=== PATIENT | female | born 1950 | race Caucasian/White ===

== ENCOUNTER 2023-04-06 13:19 | Inpatient (IN) | payer MEDICARE, SELFPAY ==
--- NOTE | ~2023-04-06 | XR_ITS ---
EXAMINATION: XR CHEST CLINICAL INFORMATION: Chest pain COMPARISON: None available. TECHNIQUE: Frontal portable view of the chest was obtained. 9:53 PM FINDINGS: Lungs are clear. No pulmonary vascular congestion. There is no pleural effusion. The heart size is normal. The cardiac and mediastinal contours are normal. There are multilevel degenerative changes of dorsal spine. XR/XR chest 1V IMPRESSION: Unremarkable examination.
--- NOTE | ~2023-04-06 | CT_ITS ---
EXAMINATION: CT HEAD WITHOUT CONTRAST CLINICAL INFORMATION: Dizziness, headache. COMPARISON: None available. TECHNIQUE: Contiguous axial imaging was performed from the skull base to vertex without intravenous administration of contrast. This CT examination was performed using dose optimization techniques as appropriate, variously including the following: *Automated exposure control *Adjustment of mA and/or kV according to patient size (this includes techniques or standardized protocols for targeted exams where dose is matched to indication/reason for exam; i.e. extremities or head) *Use of iterative reconstruction technique DLP: 627 mGy-cm FINDINGS: No intercranial hemorrhage, tumors or acute infarcts noted. Mild diffuse commensurate prominence of ventricles and sulci. No focal parenchymal lesions of the brain or abnormal extra-axial fluid collections noted. Mild segmental calcific atherosclerosis of the cavernous portions of the internal carotid arteries. Normal appearance of the orbits and globes. No significant opacification of the visualized paranasal sinuses, mastoid air cells and middle ear cavities. Minimal hyperostosis frontalis interna. 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 CT/CT head/brain wo IV con IMPRESSION: No acute intracranial abnormalities.
[2023-04-06 13:42] VITALS: BP 173/86; PULSE 86; RESP 18; TEMP 36.6; O2SAT 98; BMI 24.3
--- NOTE | 2023-04-06 13:46 | ED.GENADULT ---
HPI - General Adult General Chief complaint: General Medical Stated complaint: Not Feeling Well Diabetic Time Seen by Provider: 04/06/23 18:20 Source: patient Mode of arrival: ambulatory Limitations: no limitations History of Present Illness HPI narrative: 73-year-old female with a history of diabetes mellitus, hypertension, hyperlipidemia, COPD, depression, anxiety who presents emergency department for evaluation of headache x2 weeks, shakes, diarrhea, dyspnea on exertion. The patient states that she moved back to this area from [place] in December of 2022. Since that time she has not been able to get a PCP and she states she is run out of her Dilantin, Lantus, metformin and citalopram. She states over the past 2 weeks she has been having an unusual headache which she states is located in her temporal areas bilaterally. She states the pain is a constant, sharp pain which is 10/10 at its worst. The pain is relieved by Tylenol. She has not had any visual changes associated with the headache. She also states she gets occasional shakes close her glucose is low and the last time she had these symptoms was 3 days prior when glucose was 66. She states that she is having difficulty sleeping because she does not have her trazodone and she is feeling very anxious. Review of systems was positive for shortness of breath but she states that this is not new and secondary to her COPD. She states she does have increased dyspnea on exertion but no chest pain. Patient states she has had diarrhea 6 loose episodes per day for the last 2-3 days with no blood or dark black stools. She denied fever, chills, rhinorrhea, sore throat, cough, chest pain. She states that while she was in [place] she had an abnormal EKG in September of 2022 showed a cardiac catheterization which she was told was normal, she did not have any lesions that needed to be stented at that time. Patient states she did fall 1 week prior and did strike her head, she had no loss of consciousness. Related Data Home Medications Medication Instructions Recorded Confirmed albuterol sulfate 2.5 mg/3 mL 2.5 mg inhalation TID PRN 04/06/23 04/06/23 (0.083 %) solution for nebulization Shortness Of Breath Or Wheezing albuterol sulfate 90 mcg/actuation 2 inh inhalation Q4H PRN Shortness 04/06/23 04/06/23 breath activated powder inhaler Of Breath Or Wheezing aspirin 81 mg chewable tablet 81 mg PO DAILY 04/06/23 04/06/23 atorvastatin 40 mg tablet 40 mg PO DAILY 04/06/23 04/06/23 cholecalciferol (vitamin D3) 25 25 mcg PO DAILY 04/06/23 04/06/23 mcg (1,000 unit) tablet citalopram 40 mg tablet 40 mg PO DAILY 04/06/23 04/06/23 clobetasol 0.05 % topical cream 1 appl topical BID PRN Rash 04/06/23 04/06/23 diltiazem HCl 360 mg capsule,24 360 mg PO DAILY 04/06/23 04/06/23 hr,extended release glipizide 10 mg tablet 10 mg PO BID 04/06/23 04/06/23 hydrochlorothiazide 25 mg tablet 25 mg PO DAILY 04/06/23 04/06/23 insulin glargine 100 unit/mL 30 unit subcut DAILY 04/06/23 04/06/23 subcutaneous solution (Lantus U-100 Insulin) ipratropium bromide 0.02 % 2.5 ml inhalation BID 04/06/23 04/06/23 solution for inhalation metformin 1,000 mg tablet 1,000 mg PO BID 04/06/23 04/06/23 nystatin-triamcinolone 100,000 1 appl topical BID PRN Rash 04/06/23 04/06/23 unit/g-0.1 % topical cream pseudoephedrine HCl 30 mg tablet 30 mg PO DAILY PRN Congestion 04/06/23 04/06/23 (Sudafed) trazodone 100 mg tablet 100 mg PO BEDTIME 04/06/23 04/06/23 Allergies Allergy/AdvReac Type Severity Reaction Status Date / Time oxycodone [From Percocet] Allergy Vomiting Verified 04/06/23 13:41 Review of Systems Review of Systems: Yes all other systems are reviewed and are negative COUNT INCLUDES THE [facility] Past Medical History COUNT INCLUDES THE [facility] Narrative: Social history: She states that when she moved here in December she was living with her sister, 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 She states she is getting apartment soon. She smokes 6-10 cigarettes per day times 55 years. She denies alcohol use. She denies drug use. Medical History (Updated 04/07/23 @ 05:14 by Bk Marie MD) Obstructive sleep apnea on CPAP COPD (chronic obstructive pulmonary disease) Type 2 diabetes mellitus Depression Hyperlipidemia Essential hypertension Social History Social History Household Members: None Household Members Other:: previously with sister Housing: Apartment Do you presently have visiting nurse or other home services: No Patient Tobacco Use Status: Current someday Tobacco user Tobacco use type: Cigarette Smoked in Last 30 Days: Yes Use of substances other than those prescribed or required for medical reasons: No Currently Displaying Signs/Symptoms of Drug Intoxication Withdrawal: No Have you been hit, kicked, punched, or otherwise hurt by someone within the past year? If so, by whom?: No Do you feel safe in your current relationship?: No Current Relationship Is there a partner from a previous relationship who is making you feel unsafe now?: No Are you made to feel afraid or neglected: No Advance Directives: No Advance Directives Information Provided: No Do you have thoughts of harming others: None Do you have a plan to hurt others: No Plan Recently lost weight without trying: No How much weight loss: Not applicable Eating poorly because of decreased appetite: No Nutrition screen score: 0 Nutrition Risks: No Nutritional Risk Patient : No : No Poor oral hygiene: No Physical Exam ED Vital Signs: Vital Signs - 24 hr 04/06/23 13:42 04/06/23 18:18 04/06/23 20:00 Temperature 98 F 98.5 F 98.2 F Pulse Rate 86 81 72 Respiratory Rate 18 20 18 Blood Pressure 173/86 H 167/92 H 174/82 H Pulse Oximetry 98 95 97 Oxygen Delivery Method Room Air Room Air 04/06/23 22:00 Temperature Pulse Rate 63 Respiratory Rate 18 Blood Pressure 177/87 H Pulse Oximetry 98 Oxygen Delivery Method Room Air BMI result Body Mass Index 24.3 Vital signs did reveal an elevated blood pressure of 173/86 Exam: General: Awake, alert in no distress Head: Normocephalic, atraumatic. Patient does have tenderness palpation over maxillary sinuses with no significant tenderness palpation over her temporal region of her scalp. EENT: PERRL, Lids normal, sclera normal, conjunctiva normal, nose normal , ears normal, throat without erythema or exudates Neck: Supple, no adenopathy, no tenderness palpation of her neck. Lung: breath sounds symmetric, no wheezing, rales or rhonchi Chest: symmetric movement, nontender Heart: regular rate and rhythm, normal S1, S2 no murmurs or rubs Abdomen: soft, non-tender, nondistended, normal bowel sounds Back: no vertebral tenderness, no CVAT Extremities: no deformities, moves all extremities symmetrically Neuro: Awake, alert, oriented, normal speech, cranial nerves intact, moves all extremities symmetrically Psych: Pleasant, cooperative Course Course Course Narrative: RME: 73-year-old female history of diabetes presents to ED for dizziness, nausea, and slight headache for couple of days. Patient states she is about to run out of her diabetes medication. Patient does not have a primary care provider. EKG labs and POC ordered. Medications Administered Generic Name Dose Route Start Last Admin Trade Name Freq PRN Reason Stop Dose Admin Acetaminophen 975 mg 04/07/23 04:00 04/07/23 06:19 Acetaminophen 325 Mg Tablet PO 975 mg Q6H PRN Administration Headache Aspirin 81 mg 04/07/23 09:00 04/07/23 08:16 Aspirin 81 Mg Tab.Chew PO 81 mg DAILY BLAKE Administration Atorvastatin Calcium 40 mg 04/07/23 09:00 04/07/23 08:16 Atorvastatin Calcium 40 Mg Tablet PO 40 mg DAILY BLAKE Administration Diltiazem HCl 360 mg 04/07/23 09:00 04/07/23 08:16 Diltiazem Hcl Cd 180 Mg Cap.Er.24h PO 360 mg DAILY BLAKE Administration Protocol Escitalopram Oxalate 20 mg 04/07/23 09:00 04/07/23 08:16 Escitalopram Oxalate 20 Mg Tablet PO 20 mg DAILY BLAKE Administration Glipizide 10 mg 04/07/23 08:00 04/07/23 08:32 Glipizide 10 Mg Tablet PO 10 mg BIDWM BLAKE Administration Hydrochlorothiazide 25 mg 04/07/23 09:00 04/07/23 08:16 Hydrochlorothiazide 25 Mg Tablet PO 25 mg DAILY BLAKE Administration Protocol Heparin Sodium/Sodium Chloride 25,000 unit in 250 mls @ 0 mls/hr 04/06/23 22:30 04/07/23 07:40 Heparin Sodium,Porcine/1/2ns IVCONT 8 units/kg/hr .Q0M BLAKE 6.09 mls/hr Titration Protocol Per Protocol Insulin Glargine 30 unit 04/06/23 23:35 04/07/23 00:13 Insulin Glargine,Hum.Rec.Anlog 100 Unit/Ml 10 Ml Vial SUBCUT 30 unit BEDTIME BLAKE Administration Insulin Human Lispro 0 unit 04/07/23 07:30 04/07/23 07:27 Insulin Lispro 100 Unit/Ml 3 Ml Vial SUBCUT Not Given QIDACHS [facility] Protocol Potassium Chloride 40 meq 04/07/23 09:00 04/07/23 08:16 Potassium Chloride Packet 20 Meq Packet PO 04/07/23 21:01 40 meq BID BLAKE Administration Sodium Chloride 3 ml 04/07/23 00:00 04/07/23 07:26 0.9 % Sodium Chloride Flush 3 Ml Syringe IVFLUSH Not Given QSHIFT [facility] Trazodone HCl 100 mg 04/06/23 23:34 04/07/23 00:13 Trazodone Hcl 100 Mg Tablet PO 100 mg BEDTIME PRN Administration insomnia Vitamin D 25 mcg 04/07/23 09:00 04/07/23 08:16 Cholecalciferol (Vitamin D3) 25 Mcg Tablet PO 25 mcg DAILY BLKAE Administration Discontinued Medications Generic Name Dose Route Start Last Admin Trade Name Freq PRN Reason Stop Dose Admin Acetaminophen 975 mg 04/06/23 18:58 04/06/23 20:07 Acetaminophen 325 Mg Tablet PO 04/06/23 18:59 975 mg ONCE STA Administration Acetaminophen 650 mg 04/07/23 02:00 04/07/23 03:56 Acetaminophen 325 Mg Tablet PO 04/07/23 02:01 Not Given ONCE ONE Aspirin 324 mg 04/06/23 21:58 04/06/23 22:06 Aspirin 81 Mg Tab.Chew PO 04/06/23 21:59 324 mg ONCE ONE Administration Heparin Sodium (Porcine) 4,000 unit 04/06/23 22:18 04/06/23 22:43 Heparin Sodium,Porcine 5,000 Unit/Ml Vial IVPUSH 04/06/23 22:19 4,000 unit ONCE ONE Administration Medical Decision Making Medical Decision Making MDM Narrative: 73-year-old female with a history of diabetes mellitus, hypertension, hyperlipidemia, COPD, depression, anxiety who presents emergency department for evaluation of bilateral temporal headache x2 weeks, shakes, diarrhea, dyspnea on exertion. Patient has not been able to get her medications since she moved here from [place] and does not have a PCP. Physical examination did reveal tenderness palpation over her maxillary sinuses but no temporal tenderness, her exam was otherwise unremarkable Following evaluation was ordered: CBC, CMP, troponin, PT/INR, PTT, ESR, CRP, urinalysis, CT scan of the brain. Patient was treated with the following: Tylenol 975 mg orally Differential diagnosis: Includes was not limited to skull fracture, intracranial bleed, giant cell arteritis, nonspecific headache, viral illness, myocardial infarction, myocardial ischemia, electrolyte abnormalities, anemia 19:33 My interpretation patient's laboratory evaluation is as follows: CBC was normal. CMP was normal. Glucose was 82. PT/INR PTT were normal. Troponin was elevated 250.9. Hemoglobin A1c elevated at 6.8. ESR and CRP were not elevated. Patient's 12 EKG is consistent with a left bundle-branch block 22:18 CT scan of the brain revealed no acute fracture bleed. Patient's 1st troponin was elevated 250.9. 3 hour repeat troponin was 491 which is greater than 50% increased. I did discuss the patient's presentation and elevated troponins with the covering neurophysiologist, Dr. Pritchett. He recommended that the patient be admitted for acute coronary syndrome. I did order heparin bolus and IV drip and the patient was discussed patient's presentation findings over tiger text with the covering hospitalist Admission/Observation Consideration of admission/observation: Escalation of care including admission/observation considered Lab Data MDM Lab Attestation statement: I reviewed the patient's lab results. 04/07/23 04:14 04/07/23 04:14 Labs: Lab Results 04/06/23 04/06/23 04/06/23 Range/Units 15:46 17:44 18:23 WBC 10.2 (4.8-10.8) X10*3/uL RBC 5.62 H (4.20-5.50) X10*6/uL Hgb 16.9 H (12.0-16.0) g/dl Hct 48.5 H (37.0-47.0) % MCV 86.3 (80.0-98.0) fL MCH 30.1 (27.0-33.0) pg MCHC 34.8 (31.0-35.0) g/dl RDW 14.5 (11.0-16.0) % Plt Count 263 (160-400) X10*3/uL MPV 9.9 (9.4-12.3) fL Immature Gran % (Auto) 0.2 (0.0-0.4) % Neut % (Auto) 58.4 (45-73) % Lymph % (Auto) 30.0 (20-40) % Bland % (Auto) 6.5 (2-11) % Eos % (Auto) 4.1 H (0-4) % Baso % (Auto) 0.8 (0-2) % Lymph # (Auto) 3.1 (1.2-4.9) X10*3/uL Bland # (Auto) 0.7 (0.1-1.2) X10*3/uL Eos # (Auto) 0.4 (0.0-0.4) X10*3/uL Baso # (Auto) 0.1 (0.0-0.2) X10*3/uL Abs Immat Gran (auto) 0.02 (0.00-0.03) X10*3/uL Absolute Neuts (auto) 6.0 (2.0-8.3) x10*3/uL Absolute Nucleated RBC 0.000 (0.0-0.012) X10*3/uL Nucleated RBC % (auto) 0.0 (0.0-0.2) /100WBC ESR 2 (0-20) MM/HR PT 11.6 (11.1-13.3) SEC INR 1.0 (0.9-1.1) APTT 32.8 (26.0-36.8) SEC Sodium 136 (135-145) mmol/L Potassium 3.7 (3.3-5.1) mmol/L Chloride 98 (96-108) mmol/L Carbon Dioxide 26 (22-29) mmol/L Anion Gap 16 (12-20) BUN 9 (9-16) mg/dL Creatinine 0.74 (0.5-1.4) mg/dL Estim Creat Clear Calc 67.7 Estimated GFR > 60 POC Glucose 82 (60-115) mg/dL Random Glucose 69 (60-115) mg/dL Estimat Average Glucose 148 mg/dL Hemoglobin A1c % 6.8 H (<6.0) % Calcium 9.5 (8.4-10.2) mg/dL Total Bilirubin 0.8 (0.0-1.0) mg/dL AST 27 (5-31) U/L ALT 22 (0-31) U/L Alkaline Phosphatase 78 (39-117) U/L Troponin I High Sens 250.9 H* (<3.5-17.0) ng/L C-Reactive Protein 0.22 (< or = 0.50) mg/dL Total Protein 7.2 (6.5-8.0) g/dL Albumin 4.4 (3.5-5.0) g/dL 04/06/23 Range/Units 20:55 WBC (4.8-10.8) X10*3/uL RBC (4.20-5.50) X10*6/uL Hgb (12.0-16.0) g/dl Hct (37.0-47.0) % MCV (80.0-98.0) fL MCH (27.0-33.0) pg MCHC (31.0-35.0) g/dl RDW (11.0-16.0) % Plt Count (160-400) X10*3/uL MPV (9.4-12.3) fL Immature Gran % (Auto) (0.0-0.4) % Neut % (Auto) (45-73) % Lymph % (Auto) (20-40) % Bland % (Auto) (2-11) % Eos % (Auto) (0-4) % Baso % (Auto) (0-2) % Lymph # (Auto) (1.2-4.9) X10*3/uL Bland # (Auto) (0.1-1.2) X10*3/uL Eos # (Auto) (0.0-0.4) X10*3/uL Baso # (Auto) (0.0-0.2) X10*3/uL Abs Immat Gran (auto) (0.00-0.03) X10*3/uL Absolute Neuts (auto) (2.0-8.3) x10*3/uL Absolute Nucleated RBC (0.0-0.012) X10*3/uL Nucleated RBC % (auto) (0.0-0.2) /100WBC ESR (0-20) MM/HR PT (11.1-13.3) SEC INR (0.9-1.1) APTT (26.0-36.8) SEC Sodium (135-145) mmol/L Potassium (3.3-5.1) mmol/L Chloride (96-108) mmol/L Carbon Dioxide (22-29) mmol/L Anion Gap (12-20) BUN (9-16) mg/dL Creatinine (0.5-1.4) mg/dL Estim Creat Clear Calc Estimated GFR POC Glucose (60-115) mg/dL Random Glucose (60-115) mg/dL Estimat Average Glucose mg/dL Hemoglobin A1c % (<6.0) % Calcium (8.4-10.2) mg/dL Total Bilirubin (0.0-1.0) mg/dL AST (5-31) U/L ALT (0-31) U/L Alkaline Phosphatase (39-117) U/L Troponin I High Sens 491.0 H* D (<3.5-17.0) ng/L C-Reactive Protein (< or = 0.50) mg/dL Total Protein (6.5-8.0) g/dL Albumin (3.5-5.0) g/dL Independent Interpretation I performed an independent interpretation of an: EKG Interpretation: My independent interpretation the patient's 12 EKG done at 17:41 hours is as follows: Normal sinus rhythm rate of 75, normal TX interval, prolonged QRS duration of 162 milliseconds, prolonged QTC of 491 milliseconds, patient has a left bundle-branch block, no significant ST segment elevation or depression, no previous EKG for comparison Radiology Impression Discussion of test interpretation with radiology: I have reviewed the radiologist's reading. Radiologist Impression: CT head/brain wo IV con IMPRESSION: No acute intracranial abnormalities. Dictated By: Deng Pedersen MD Critical Care Time Critical Care Time Critical Care Time: Yes Total Critical Care Time: 35 Attestation: Critical Care: The patient was critically ill with a high probability of imminent or life threatening deterioration. I spent greater than 30 minutes of discontinuous time evaluating the patient,delivering critical care at the bedside, discussing and evaluating pertinent data with consultants. Critical care time does not include time spent performing separately billable procedures or teaching. Total time spent performing critical care was 35 minutes. Discharge Plan Discharge Patient Disposition: Admitted As Inpatient Interventions: Admission Worksheet (ED) Last Done: 04/07/23 07:49
[2023-04-06 16:19] LABS: Estimated Average Glucose 148 mg/dL; Hemoglobin A1c % 6.8 % (<6.0)
--- NOTE | 2023-04-06 17:16 | ECG_ITS ---
Test Reason : DIZZINESS Blood Pressure : / mmHG Vent. Rate : 075 BPM Atrial Rate : 075 BPM P-R Int : 190 ms QRS Dur : 162 ms QT Int : 440 ms P-R-T Axes : 067 -51 109 degrees QTc Int : 491 ms Normal sinus rhythm Left axis deviation Left bundle branch block Abnormal ECG No previous ECGs available Referred By: Hung Jones Electronically Signed By:GATITO JOSHI MD
[2023-04-06 17:54] LABS: Basophils Absolute Auto 0.1 X10*3/uL (0.0-0.2); Basophils Percent Auto 0.8 % (0-2); Eosinophils Absolute Auto 0.4 X10*3/uL (0.0-0.4); Eosinophils Percent Auto 4.1 % (0-4); Hematocrit 48.5 % (37.0-47.0); Hemoglobin 16.9 g/dl (12.0-16.0); Imm Gran Abs Auto 0.02 X10*3/uL (0.00-0.03); Imm Gran Pct Auto 0.2 % (0.0-0.4); Lymphocytes Absolute Auto 3.1 X10*3/uL (1.2-4.9); MANUAL DIFF FLAG NO; Mean Corpuscular HGB Conc 34.8 g/dl (31.0-35.0); Mean Corpuscular Hemoglobin 30.1 pg (27.0-33.0); Mean Corpuscular Volume 86.3 fL (80.0-98.0); Mean Platelet Volume 9.9 fL (9.4-12.3); Monocytes Absolute Auto 0.7 X10*3/uL (0.1-1.2); Monocytes Percent Auto 6.5 % (2-11); Neutrophils Percent Auto 58.4 % (45-73); Platelet Count 263 X10*3/uL (160-400); Red Blood Count 5.62 X10*6/uL (4.20-5.50); Red Cell Distribution Width 14.5 % (11.0-16.0); White Blood Count 10.2 X10*3/uL (4.8-10.8)
[2023-04-06 18:00] LABS: Prothrombin Time 11.6 SEC (11.1-13.3)
[2023-04-06 18:02] LABS: Partial Thromboplastin Time 32.8 SEC (26.0-36.8)
[2023-04-06 18:11] LABS: Alanine Aminotransferase 22 U/L (0-31); Albumin Level 4.4 g/dL (3.5-5.0); Alkaline Phosphatase 78 U/L (39-117); Anion Gap 16 (12-20); Aspartate Amino Transferase 27 U/L (5-31); Bilirubin Total 0.8 mg/dL (0.0-1.0); Blood Urea Nitrogen 9 mg/dL (9-16); Calcium 9.5 mg/dL (8.4-10.2); Carbon Dioxide 26 mmol/L (22-29); Chloride 98 mmol/L (96-108); Creatinine Clr Calc Pharmacy 67.7; Estimated Glomerular Filt Rate > 60; Glucose Random 69 mg/dL (60-115); Potassium 3.7 mmol/L (3.3-5.1); Sodium 136 mmol/L (135-145); Total Protein 7.2 g/dL (6.5-8.0)
[2023-04-06 18:18] VITALS: BP 167/92; PULSE 81; RESP 20; TEMP 36.9; O2SAT 95
[2023-04-06 18:23] LABS: Troponin-I High Sensitivity 250.9 ng/L (<3.5-17.0)
[2023-04-06 18:29] LABS: Glucose, Whole Blood 82 mg/dL (60-115)
--- NOTE | 2023-04-06 19:06 | PHA.MEDREC ---
Pharmacy Consult ? Medication Reconciliation Pharmacy has completed the medication reconciliation. Patient just moved from [place]. Patient had list of medication that she reports she is suppose to be taking. Reported to RN that she ran out of diltiazem, citalopram and lantus. Ashley Gibson ,[employer]
[2023-04-06 19:53] LABS: C Reactive Protein 0.22 mg/dL (< or = 0.50)
[2023-04-06 20:00] VITALS: BP 174/82; PULSE 72; RESP 18; TEMP 36.8; O2SAT 97
[2023-04-06] MEDS: Acetaminophen 325 MG TABLET 975 MG PO (20:07)
[2023-04-06 20:23] LABS: Erythrocyte Sedimentation Rate 2 MM/HR (0-20)
[2023-04-06 22:00] VITALS: BP 177/87; PULSE 63; RESP 18; O2SAT 98
[2023-04-06] MEDS: Aspirin 81 MG TAB.CHEW 324 MG PO (22:06)
[2023-04-06] MEDS: Heparin Sodium,Porcine 5,000 UNIT/ML VIAL 4000 UNIT IVPUSH (22:43)
[2023-04-06] MEDS: Heparin Sodium,Porcine/1/2NS 25,000 UNIT/250 ML IV.SOLN 9.13 UNIT IVCONT (22:46)
[2023-04-07] VITALS (9 sets, daily range): BP systolic 119–156; BP diastolic 50–80; PULSE 57–73; RESP 15–20; TEMP 36–36.4; O2SAT 90–98
[2023-04-07] MEDS: Insulin Glargine,Hum.rec.anlog 100 UNIT/ML 10 ML VIAL 30 UNIT SUBCUT ×2 (00:13→20:22)
[2023-04-07] MEDS: traZODone HCL 100 MG TABLET PO ×2 (00:13→22:44)
[2023-04-07 02:05] LABS: Troponin-I High Sensitivity 659.1 ng/L (<3.5-17.0)
--- NOTE | 2023-04-07 02:07 | PC.NURSE ---
Pt currently sleeping, deferred Aceta order.
--- NOTE | 2023-04-07 04:49 | P.HPHOSP_ITS ---
History of Present Illness Date of Service: 04/06/23 Attending physician on admission: Bk Marie Chief Complaint: Headache Gisela Jacobson is a 73 years old woman with past medical history significant for type 2 diabetes mellitus, COPD, obstructive sleep apnea on CPAP, anxiety and hypertension presents to the emergency department complaining of frontal headache and feeling unwell over the last 2 weeks. Denies any associated nausea, vomiting or photophobia. The headache has been constant and improves with Tylenol. She denied any fevers or chills. She did report diarrhea. She denied chest pain, shortness on breath or cough. She denied any gastrointestinal or genitourinary symptoms. She did not report tobacco smoking, alcohol abuse or illicit drug use. Patient mentioned that she moved from [place] (December 2022, and that she underwent a cardiac catheterization there. He said that she was told that the results were okay and underwent no procedures. I asked her why this procedure was done and she said because her EKG did not look good. In the ED, she was found to have normal vital signs. Blood workup is remarkable for elevated troponin (250.9 --> 491 --> 659.1). ESR is normal. There are no electrolyte imbalances and renal function is normal. Hemoglobin A1c 6.8%. Her EKG showed a left bundle branch block. CXR is negative. Head CT scan showed no acute intracranial abnormalities. According to ED provider case was discussed with cardiology service and treatment with heparin IV infusion was recommended. ED tx: Acetaminophen 975 mg p.o., aspirin 324 mg p.o., heparin IV infusion. Review of Systems 2 Review of Systems: All 12 systems were reviewed and normal except as noted in HPI. [facility] Medical History (Updated 04/07/23 @ 05:14 by Bk Marie MD) Obstructive sleep apnea on CPAP COPD (chronic obstructive pulmonary disease) Type 2 diabetes mellitus Depression Hyperlipidemia Essential hypertension Social History Patient Tobacco Use Status: Never used Tobacco Smoked in Last 30 Days: Yes Use of substances other than those prescribed or required for medical reasons: No Advance Directives: No Advance Directives Information Provided: No Nutrition Risks: No Nutritional Risk Meds Allergies Allergy/AdvReac Type Severity Reaction Status Date / Time oxycodone [From Percocet] Allergy Vomiting Verified 04/06/23 13:41 Active Medications: Current Medications Acetaminophen (Acetaminophen 325 Mg Tablet) 975 mg PO Q6H PRN PRN Reason: Headache Aspirin (Aspirin 81 Mg Tab.Chew) 81 mg PO DAILY [facility] Atorvastatin Calcium (Atorvastatin Calcium 40 Mg Tablet) 40 mg PO DAILY [facility] Dextrose (Dextrose 50 % 25 Gm/50 Ml Syringe) 25 gm IVPUSH Q15M PRN; Protocol PRN Reason: per Hypoglycemia Standing Ord. Diltiazem HCl (Diltiazem Hcl Cd 180 Mg Cap.Er.24h) 360 mg PO DAILY [facility]; Protocol Escitalopram Oxalate (Escitalopram Oxalate 20 Mg Tablet) 20 mg PO DAILY [facility] Glipizide (Glipizide 10 Mg Tablet) 10 mg PO BIDWM [facility] Glucose (Glucose Gel 15 Gm Gel..Gram.) 15 gm PO Q15M PRN; Protocol PRN Reason: per Hypoglycemia Standing Ord. Heparin Sodium (Porcine) (Heparin Sodium,Porcine 5,000 Unit/Ml Vial) 3,000 unit 40 unit/kg (3000 unit) IVPUSH PROTOCOL BOLUS PRN; Protocol PRN Reason: 40 unit/kg - Heparin Protocol Heparin Sodium (Porcine) (Heparin Sodium,Porcine 5,000 Unit/Ml Vial) 6,100 unit 80 unit/kg (6100 unit) IVPUSH PROTOCOL BOLUS PRN; Protocol PRN Reason: 80 unit/kg - Heparin Protocol Hydrochlorothiazide (Hydrochlorothiazide 25 Mg Tablet) 25 mg PO DAILY [facility]; Protocol Heparin Sodium/Sodium Chloride (Heparin Sodium,Porcine/1/2ns) 25,000 unit in 250 mls @ 0 mls/hr IVCONT .Q0M [facility]; Protocol Last Admin: 04/06/23 22:46 Dose: 12 units/kg/hr, 9.13 mls/hr Insulin Glargine (Insulin Glargine,Hum.Rec.Anlog 100 Unit/Ml 10 Ml Vial) 30 unit SUBCUT BEDTIME [facility] Last Admin: 04/07/23 00:13 Dose: 30 unit Insulin Human Lispro (Insulin Lispro 100 Unit/Ml 3 Ml Vial) 0 unit SUBCUT QIDACHS [facility]; Protocol Sodium Chloride (0.9 % Sodium Chloride Flush 3 Ml Syringe) 3 ml IVFLUSH QSHIFT [facility] Last Admin: 04/07/23 00:24 Dose: Not Given Trazodone HCl (Trazodone Hcl 100 Mg Tablet) 100 mg PO BEDTIME PRN PRN Reason: insomnia Last Admin: 04/07/23 00:13 Dose: 100 mg Vitamin D (Cholecalciferol (Vitamin D3) 25 Mcg Tablet) 25 mcg PO DAILY [facility] Home Medications Medication Instructions Recorded Confirmed Last Taken Type albuterol sulfate 2.5 mg/3 mL 2.5 mg inhalation TID PRN 04/06/23 04/06/23 Unknown History (0.083 %) solution for nebulization Shortness Of Breath Or Wheezing albuterol sulfate 90 mcg/actuation 2 inh inhalation Q4H PRN Shortness 04/06/23 04/06/23 Unknown History breath activated powder inhaler Of Breath Or Wheezing aspirin 81 mg chewable tablet 81 mg PO DAILY 04/06/23 04/06/23 Unknown History atorvastatin 40 mg tablet 40 mg PO DAILY 04/06/23 04/06/23 Unknown History cholecalciferol (vitamin D3) 25 25 mcg PO DAILY 04/06/23 04/06/23 Unknown History mcg (1,000 unit) tablet citalopram 40 mg tablet 40 mg PO DAILY 04/06/23 04/06/23 Unknown History clobetasol 0.05 % topical cream 1 appl topical BID PRN Rash 04/06/23 04/06/23 Unknown History diltiazem HCl 360 mg capsule,24 360 mg PO DAILY 04/06/23 04/06/23 Unknown History hr,extended release glipizide 10 mg tablet 10 mg PO BID 04/06/23 04/06/23 Unknown History hydrochlorothiazide 25 mg tablet 25 mg PO DAILY 04/06/23 04/06/23 Unknown History insulin glargine 100 unit/mL 30 unit subcut DAILY 04/06/23 04/06/23 Unknown History subcutaneous solution (Lantus U-100 Insulin) ipratropium bromide 0.02 % 2.5 ml inhalation BID 04/06/23 04/06/23 Unknown History solution for inhalation metformin 1,000 mg tablet 1,000 mg PO BID 04/06/23 04/06/23 Unknown History nystatin-triamcinolone 100,000 1 appl topical BID PRN Rash 04/06/23 04/06/23 Unknown History unit/g-0.1 % topical cream pseudoephedrine HCl 30 mg tablet 30 mg PO DAILY PRN Congestion 04/06/23 04/06/23 Unknown History (Sudafed) trazodone 100 mg tablet 100 mg PO BEDTIME 04/06/23 04/06/23 Unknown History Physical Exam 2 Vital Signs and Narrative: Vital Signs: Last Vital Signs Temp 98.2 F 04/06/23 20:00 Pulse 62 04/07/23 03:29 Resp 15 04/07/23 03:29 BP 119/50 L 04/07/23 03:29 Pulse Ox 92 04/07/23 03:29 O2 Del Method Room Air 04/07/23 03:29 BMI result Body Mass Index 24.3 Results Labs 04/06/23 17:44 04/06/23 17:44 Labs: Laboratory Results - last 24 hr 04/06/23 04/06/23 04/06/23 15:46 17:44 18:23 MCV 86.3 MCH 30.1 MCHC 34.8 RDW 14.5 Plt Count 263 MPV 9.9 Immature Gran % (Auto) 0.2 Neut % (Auto) 58.4 Lymph % (Auto) 30.0 [place] % (Auto) 6.5 Eos % (Auto) 4.1 H Baso % (Auto) 0.8 Lymph # (Auto) 3.1 [place] # (Auto) 0.7 Eos # (Auto) 0.4 Baso # (Auto) 0.1 Abs Immat Gran (auto) 0.02 Absolute Neuts (auto) 6.0 Absolute Nucleated RBC 0.000 Nucleated RBC % (auto) 0.0 ESR 2 PT 11.6 INR 1.0 APTT 32.8 Anion Gap 16 Estim Creat Clear Calc 67.7 Estimated GFR > 60 POC Glucose 82 Random Glucose 69 Estimat Average Glucose 148 Hemoglobin A1c % 6.8 H Calcium 9.5 Total Bilirubin 0.8 AST 27 ALT 22 Alkaline Phosphatase 78 Troponin I High Sens 250.9 H* C-Reactive Protein 0.22 Total Protein 7.2 Albumin 4.4 04/06/23 04/07/23 20:55 01:37 MCV MCH MCHC RDW Plt Count MPV Immature Gran % (Auto) Neut % (Auto) Lymph % (Auto) [place] % (Auto) Eos % (Auto) Baso % (Auto) Lymph # (Auto) [place] # (Auto) Eos # (Auto) Baso # (Auto) Abs Immat Gran (auto) Absolute Neuts (auto) Absolute Nucleated RBC Nucleated RBC % (auto) ESR PT INR APTT Anion Gap Estim Creat Clear Calc Estimated GFR POC Glucose Random Glucose Estimat Average Glucose Hemoglobin A1c % Calcium Total Bilirubin AST ALT Alkaline Phosphatase Troponin I High Sens 491.0 H* D 659.1 H* C-Reactive Protein Total Protein Albumin Imaging Radiologist's Impressions: Impressions Head CT 04/06/23 19:45 IMPRESSION: No acute intracranial abnormalities. Chest X-Ray 04/06/23 22:05 IMPRESSION: Unremarkable examination. Assessment and Plan (1) ACS (acute coronary syndrome): Status: Acute (2) Essential hypertension: Status: Acute (3) Hyperlipidemia: Qualifiers: Hyperlipidemia type: unspecified Qualified Code(s): E78.5 - Hyperlipidemia, unspecified Status: Acute (4) Headache: Qualifiers: Headache type: unspecified Headache chronicity pattern: acute headache Intractability: not intractable Qualified Code(s): R51.9 - Headache, unspecified Status: Acute (5) Obstructive sleep apnea on CPAP: Status: Acute Plan Gisela Jacobson is a 73 years old woman admitted with: * Acute coronary syndrome. Admit to hospitalist service. Telemetry. Continue treatment with heparin IV infusion, aspirin and atorvastatin. Check TTE. Trend troponin. LBBB (suspecting this old -awaiting for cardiac cath paperwork from [place], [place]). Cardiology consult for further recommendations. * Essential hypertension. Continue diltiazem. Hold HCTZ. * Type 2 diabetes mellitus. Continue Lantus and glipizide. Hold metformin (patient reported diarrhea). Check blood glucose before meals at bedtime. Diabetic diet. * Depression. Continue Lexapro. * Hyperlipidemia. Continue atorvastatin. Check lipid panel. * Obstructive sleep apnea. Nocturnal CPAP. * Headache. Normal ESR. Tylenol as needed. * Insomnia. Continue trazodone. DVT prophylaxis: Heparin IV infusion Code status: Full Patient will need hospitalization for at least 2 midnights for acute coronary syndrome treatment with IV heparin, aspirin and statin. Patient will also need evaluation by specialty (cardiology). Quality Stroke Does the patient have a stroke diagnosis?: No VTE Prior VTE?: No VTE Risk Level:: Medical - moderate - high VTE Device Contraindication: Treatment Not Indicated VTE Drug Contraindication: N/A - Med Ordered
[2023-04-07 05:16] LABS: MANUAL DIFF FLAG NO
[2023-04-07 05:19] LABS: Basophils Absolute Auto 0.1 X10*3/uL (0.0-0.2); Basophils Percent Auto 0.8 % (0-2); Eosinophils Absolute Auto 0.5 X10*3/uL (0.0-0.4); Eosinophils Percent Auto 6.6 % (0-4); Hemoglobin 15.5 g/dl (12.0-16.0); Imm Gran Abs Auto 0.02 X10*3/uL (0.00-0.03); Imm Gran Pct Auto 0.3 % (0.0-0.4); Lymphocytes Absolute Auto 2.6 X10*3/uL (1.2-4.9); Lymphocytes Percent Auto 33.7 % (20-40); Mean Corpuscular HGB Conc 34.4 g/dl (31.0-35.0); Mean Corpuscular Hemoglobin 29.7 pg (27.0-33.0); Mean Corpuscular Volume 86.2 fL (80.0-98.0); Mean Platelet Volume 10.5 fL (9.4-12.3); Monocytes Absolute Auto 0.5 X10*3/uL (0.1-1.2); Monocytes Percent Auto 7.1 % (2-11); Neutrophils Absolute Auto 3.9 x10*3/uL (2.0-8.3); Neutrophils Percent Auto 51.5 % (45-73); Platelet Count 217 X10*3/uL (160-400); Red Blood Count 5.22 X10*6/uL (4.20-5.50); Red Cell Distribution Width 14.2 % (11.0-16.0); White Blood Count 7.6 X10*3/uL (4.8-10.8)
[2023-04-07 05:27] LABS: Prothrombin Time 12.6 SEC (11.1-13.3)
[2023-04-07 05:33] LABS: Alanine Aminotransferase 21 U/L (0-31); Albumin Level 3.8 g/dL (3.5-5.0); Alkaline Phosphatase 73 U/L (39-117); Anion Gap 15 (12-20); Aspartate Amino Transferase 24 U/L (5-31); Bilirubin Total 0.7 mg/dL (0.0-1.0); Blood Urea Nitrogen 9 mg/dL (9-16); Calcium 8.7 mg/dL (8.4-10.2); Carbon Dioxide 23 mmol/L (22-29); Chloride 100 mmol/L (96-108); Creatinine Clr Calc Pharmacy 85.8; Estimated Glomerular Filt Rate > 60; Glucose Random 83 mg/dL (60-115); Potassium 3.1 mmol/L (3.3-5.1); Sodium 135 mmol/L (135-145); Total Protein 6.2 g/dL (6.5-8.0)
[2023-04-07 05:47] LABS: Troponin-I High Sensitivity 878.5 ng/L (<3.5-17.0)
[2023-04-07 05:51] LABS: Estimated Average Glucose 148 mg/dL; Hemoglobin A1c % 6.8 % (<6.0); PTT Heparin Drip 162.7 SEC (53-77.9)
[2023-04-07 06:13] LABS: Influenza A PCR NEGATIVE (Negative); Influenza B PCR NEGATIVE (Negative); Resp Syncy Virus RNA Qual PCR NEGATIVE (Negative); SARS COV2 PCR INHOUSE NEGATIVE (Negative)
[2023-04-07] MEDS: Acetaminophen 325 MG TABLET 975 MG PO ×2 (06:19→14:38)
[2023-04-07 06:41] LABS: PTT Heparin Drip 160.9 SEC (53-77.9)
--- NOTE | 2023-04-07 07:00 | CA_ITS ---
Transthoracic Echocardiogram Patient (Last, First, Middle): Gisela Jacobson L Gender: Female Date of : 1950 Age: 73 Procedure Date: 04/07/2023 Procedure Type: Transthoracic Echocardiogram Location: ER Height: 167.64 cm Weight: 75.75 kg BSA: 1.85 m2 Heart Rate: bpm BP: 128 / 80 mmHg Cake Cutter Machine: Referring MD: Bk Marie MD Farm Machinery Mechanic: Aleks Pritchett MD Symptoms: Elevated troponin, LBBB Study Quality: Adequate ECG Rhythm: Sinus Conclusions: - 1. Moderate to severe LV systolic dysfunction with regional wall motion abnormality consistent with ischemic cardiomyopathy with impaired relaxation filling pattern with LVEF of 30-35% 2. Mild mitral regurgitation 3. No gross pericardial effusion Findings Left Ventricle Normal left ventricular cavity size. There is mildly increased left ventricular wall thickness. The left ventricular systolic function is moderate to severely decreased. The visually estimated ejection fraction is between 30-35%. There is paradoxical septal motion consistent with a left bundle branch block. Spectral Doppler is indicative of an impaired relaxation filling pattern. E/E prime ratio is between 8 and 15 consistent with indeterminate filling pressures. Wall Motion Rest Echo Findings The inferoseptal wall, inferior wall, the apical septum, and mid anteroseptal segments are hypokinetic. All other scored wall segments showed normal motion. Right Ventricle Normal right ventricular cavity size and systolic function. Atria The left atrium is likely dilated. Interatrial shunt cannot be excluded. The right atrium is normal in size. Aortic Valve The aortic valve was not well visualized. There is no aortic valve stenosis. There is no aortic valve regurgitation. Mitral Valve There is mild anterior and posterior mitral leaflet thickening. There is mild mitral valve regurgitation. There is no mitral valve stenosis. Pulmonic Valve The pulmonic valve is likely normal. Tricuspid Valve Likely normal tricuspid valve structure and function. Tricuspid regurgitation envelope is inadequate for calculation of right ventricular systolic pressure. Normal right atrial pressure. Great Vessels All visible segments of the aorta are normal in size. The pulmonary artery was not well visualized. There is no dilatation of the ascending aorta measuring 3.10 cm. Venous The inferior vena cava is normal in size and collapses greater than 50% with inspiration. Pericardium/Pleural There is no evidence of pericardial effusion. Prior Study Comparison No prior study available for comparison. Measurements 2D Linear Measurements IVSd: 1.35 0.6-0.9/0.6-1.0 cm LVIDd: 4.31 3.9-5.3/4.2-5.9 cm LVIDd Index: 2.33 2.4-3.2/2.2-3.1 cm/m2 LVIDs: 3.42 2.0-3.6 cm LVPWd: 1.26 0.7-1.1 cm Ao Root: 2.50 2.1-3.5 cm LA Diam: 3.40 2.7-3.8/3.0-4.0 cm LAIDs Index: 1.84 1.5-2.3 cm/m2 LV Mass: 261.36 67-162/88-224 g LV Mass Index: 141.28 43-95/49-115 g/m2 LVOT Diam: 2.10 3.0+(-)1.3 cm 2D Systolic Function EF 4C: 36.20 >55% EF 2C: 20.10 >55% EF BiP: 29.40 >55% Mitral Valve MV Pk E: 0.61 MV PK A: 1.10 MV Decel Time: 245.00 E/A: 0.60 E'Lateral: 5.77 E'Medial: 3.81 E/E' Med: 16.10 E/E' Lat: 10.60 PHT: 72.00 MVA PHT: 3.06 Decel [place]: 2.50 Aortic Valve AoV Pk [place]: 1.75 AoV Mn [place]: 1.23 AoV VTI: 0.35 AoV Pk Grad: 12.00 Aov Mn Grad: 7.00 NIKIA Cont.VTI: 2.19 LVOT LVOT Pk [place]: 1.01 LVOT Mn [place]: 0.60 LVOT VTI: 0.22 LVOT Pk Grad: 4.00 LVOT Mn Grad: 2.00 LVOT Diam: 2.10 LVOT Area: 3.46 Diastolic Function MV Pk E: 0.61 MV Pk A: 1.10 E/A: 0.60 E'Medial: 3.81 E/E' Med: 16.10 E' Laterial: 5.77 E/E' Lat: 10.60 Right Ventricle TAPSE (mm): 26.30 TVS' [place]: 11.00 Tricuspid Valve TR Pk [place]: 1.83 TR Pk Grad: 13.00 Great Vessels Aorta Ao Root-2D: 2.50 2.0-3.7 cm Ao Asc: 3.10 2.1-3.4 cm Pulmonary Valve PV Pk [place]: 0.84 Peak PV Grad: 3.00 Updated in Other Vendor System with Status of Final Aleks Pritchett MD electronically signed on 04/07/2023 4:00:27 PM with status of Final
[2023-04-07 07:22] LABS: PTT Heparin Drip 68.8 SEC (53-77.9)
[2023-04-07 07:38] LABS: Cholesterol 154 mg/dL (<200); HDL Cholesterol 44 mg/dL (>40); LDL Cholesterol Calculated 83 mg/dL (<100); Triglycerides 137 mg/dL (<150)
[2023-04-07 07:46] LABS: Glucose, Whole Blood 99 mg/dL (60-115)
[2023-04-07 07:59] LABS: Reflex LDLD? No
[2023-04-07] MEDS: Escitalopram Oxalate 20 MG TABLET PO (08:16)
[2023-04-07] MEDS: Potassium Chloride Packet 20 MEQ PACKET 40 MEQ PO ×2 (08:16→20:23)
[2023-04-07] MEDS: Atorvastatin Calcium 40 MG TABLET PO (08:16)
[2023-04-07] MEDS: dilTIAZem HCL CD 180 MG CAP.ER.24H 360 MG PO (08:16)
[2023-04-07] MEDS: Aspirin 81 MG TAB.CHEW PO (08:16)
[2023-04-07] MEDS: Cholecalciferol (Vitamin D3) 25 MCG TABLET PO (08:16)
[2023-04-07] MEDS: hydroCHLOROthiazide 25 MG TABLET PO (08:16)
[2023-04-07] MEDS: glipiZIDE 10 MG TABLET PO ×2 (08:32→17:11)
--- NOTE | 2023-04-07 10:24 | MHC.CM.PN ---
IMM 04/07/23, pt. is independent, she is currently house sitting, will stay with family while she waits for an apt. to be available at [address] [facility] in [facility]. She does not currently have a PCP, used to go to [facility] in [facility], hoping to go there again, CM to call and inquire. no home health services or medical equipment. Sister to transport home upon DC. HCP form given and will be added to chart. CM to follow and assist with DC plan.
--- NOTE | 2023-04-07 10:33 | MHC.CM.PN ---
correction, pt has CPAP and nebulizer for med equipment.
[2023-04-07 11:45] LABS: Glucose, Whole Blood 159 mg/dL (60-115)
[2023-04-07 12:23] LABS: PTT Heparin Drip 47.8 SEC (53-77.9)
[2023-04-07 12:33] LABS: Troponin-I High Sensitivity 673.7 ng/L (<3.5-17.0)
[2023-04-07] MEDS: Insulin Lispro 100 UNIT/ML 3 ML VIAL SUBCUT ×3 (12:39→20:22)
[2023-04-07] MEDS: Heparin Sodium,Porcine 5,000 UNIT/ML VIAL 3000 UNIT IVPUSH (13:08)
--- NOTE | 2023-04-07 15:26 | PM.CNCAR ---
History of Present Illness History of Present Illness Date of Service: 04/07/23 Requesting physician: Joni Pérez Consult reason: troponin elevation Chief complaint: Acute Coronary Syndrome Narrative: I was consulted to see Gisela in cardiology consultation today for abnormal troponin. She is a 73-year-old female with prior history of hypertension, diabetes, hyperlipidemia who recently moved back from [place] and was having trouble establishing with primary care physician. She ran out of medication about a month ago but was still not able to get her appointment. She then was not feeling well, not able to exactly same as what she was feeling. She denies any chest pain or shortness of breath just felt that she was not feeling well. She came to the emergency room and EKG showed left bundle-branch block and her 1st troponin was elevated. Subsequent troponin of further rising consistent with myocardial injury and NSTEMI. However she denies chest pain. EKG is nondiagnostic due to left bundle-branch block. She says last summer she was admitted in [place] with pneumonia and had time she was told that she had an abnormal EKG and subsequently underwent a stress test and underwent a cardiac catheterization which showed no significant obstructive disease as per her. She was then managed medically. She does not have the records of the same. She comes here she does have underlying COPD and has exertional shortness of breath which is unchanged. Denies any recent viral illness. Denies any palpitations or lightheadedness. Review of Systems Constitutional: Constitutional: Reports no additional constitutional complaints Cardiovascular: Cardiovascular: Denies chest pain, Denies leg edema, Denies lightheadedness, Denies Loss of Consciousness, Denies palpitations and Reports dyspnea on exertion Respiratory: Respiratory: Reports no additional respiratory complaints and Reports dyspnea on exertion Gastrointestinal: Gastrointestinal: Reports no additional gastrointestinal complaints Genitourinary: Genitourinary: Reports no additional female genitourinary complaints Musculoskeletal: Musculoskeletal: Reports no additional musculoskeletal complaints Integumentary/Breasts: Skin/Breast: Reports system reviewed and no additional complaints, except as docu Neurologic: Reports system reviewed and no additional complaints, except as documented Psychiatric: Psychiatric: Reports no additional psychiatric complaints Endocrine: Endocrine: Denies palpitations PMFSH Past Medical History Medical History Obstructive sleep apnea on CPAP COPD (chronic obstructive pulmonary disease) Type 2 diabetes mellitus Depression Hyperlipidemia Essential hypertension Social History Social History Household Members: None Household Members Other:: previously with sister Housing: Apartment Do you presently have visiting nurse or other home services: No Patient Tobacco Use Status: Current someday Tobacco user Tobacco use type: Cigarette Smoked in Last 30 Days: Yes Use of substances other than those prescribed or required for medical reasons: No Currently Displaying Signs/Symptoms of Drug Intoxication Withdrawal: No Have you been hit, kicked, punched, or otherwise hurt by someone within the past year? If so, by whom?: No Do you feel safe in your current relationship?: No Current Relationship Is there a partner from a previous relationship who is making you feel unsafe now?: No Are you made to feel afraid or neglected: No Advance Directives: No Advance Directives Information Provided: No Do you have thoughts of harming others: None Do you have a plan to hurt others: No Plan Recently lost weight without trying: No How much weight loss: Not applicable Eating poorly because of decreased appetite: No Nutrition screen score: 0 Nutrition Risks: No Nutritional Risk Patient : No : No Poor oral hygiene: No service: No Meds Allergies Allergy/AdvReac Type Severity Reaction Status Date / Time oxycodone [From Percocet] Allergy Vomiting Verified 04/06/23 13:41 Active Medications: Current Medications Acetaminophen (Acetaminophen 325 Mg Tablet) 975 mg PO Q6H PRN PRN Reason: Headache Last Admin: 04/07/23 14:38 Dose: 975 mg Albuterol/Ipratropium (Albuterol/Iprat 2.5/0.5mg 3 Ml Ampul.Neb) 3 ml INHALE RQ4H WHILE AWAKE PRN PRN Reason: Shortness of Breath/Wheezing Aspirin (Aspirin 81 Mg Tab.Chew) 81 mg PO DAILY [facility] Last Admin: 04/07/23 08:16 Dose: 81 mg Atorvastatin Calcium (Atorvastatin Calcium 40 Mg Tablet) 40 mg PO DAILY [facility] Last Admin: 04/07/23 08:16 Dose: 40 mg Dextrose (Dextrose 50 % 25 Gm/50 Ml Syringe) 25 gm IVPUSH Q15M PRN; Protocol PRN Reason: per Hypoglycemia Standing Ord. Diltiazem HCl (Diltiazem Hcl Cd 180 Mg Cap.Er.24h) 360 mg PO DAILY [facility]; Protocol Last Admin: 04/07/23 08:16 Dose: 360 mg Escitalopram Oxalate (Escitalopram Oxalate 20 Mg Tablet) 20 mg PO DAILY [facility] Last Admin: 04/07/23 08:16 Dose: 20 mg Glipizide (Glipizide 10 Mg Tablet) 10 mg PO BIDWM [facility] Last Admin: 04/07/23 08:32 Dose: 10 mg Glucose (Glucose Gel 15 Gm Gel..Gram.) 15 gm PO Q15M PRN; Protocol PRN Reason: per Hypoglycemia Standing Ord. Heparin Sodium (Porcine) (Heparin Sodium,Porcine 5,000 Unit/Ml Vial) 3,000 unit 40 unit/kg (3000 unit) IVPUSH PROTOCOL BOLUS PRN; Protocol PRN Reason: 40 unit/kg - Heparin Protocol Last Admin: 04/07/23 13:08 Dose: 3,000 unit Heparin Sodium (Porcine) (Heparin Sodium,Porcine 5,000 Unit/Ml Vial) 6,100 unit 80 unit/kg (6100 unit) IVPUSH PROTOCOL BOLUS PRN; Protocol PRN Reason: 80 unit/kg - Heparin Protocol Hydrochlorothiazide (Hydrochlorothiazide 25 Mg Tablet) 25 mg PO DAILY [facility]; Protocol Last Admin: 04/07/23 08:16 Dose: 25 mg Heparin Sodium/Sodium Chloride (Heparin Sodium,Porcine/1/2ns) 25,000 unit in 250 mls @ 0 mls/hr IVCONT .Q0M [facility]; Protocol Last Titration: 04/07/23 13:06 Dose: 10 units/kg/hr, 7.61 mls/hr Insulin Glargine (Insulin Glargine,Hum.Rec.Anlog 100 Unit/Ml 10 Ml Vial) 30 unit SUBCUT BEDTIME [facility] Last Admin: 04/07/23 00:13 Dose: 30 unit Insulin Human Lispro (Insulin Lispro 100 Unit/Ml 3 Ml Vial) 0 unit SUBCUT QIDACHS [facility]; Protocol Last Admin: 04/07/23 12:39 Dose: 2 unit Potassium Chloride (Potassium Chloride Packet 20 Meq Packet) 40 meq PO BID [facility] Stop: 04/07/23 21:01 Last Admin: 04/07/23 08:16 Dose: 40 meq Sodium Chloride (0.9 % Sodium Chloride Flush 3 Ml Syringe) 3 ml IVFLUSH QSHIFT [facility] Last Admin: 04/07/23 07:26 Dose: Not Given Trazodone HCl (Trazodone Hcl 100 Mg Tablet) 100 mg PO BEDTIME PRN PRN Reason: insomnia Last Admin: 04/07/23 00:13 Dose: 100 mg Vitamin D (Cholecalciferol (Vitamin D3) 25 Mcg Tablet) 25 mcg PO DAILY [facility] Last Admin: 04/07/23 08:16 Dose: 25 mcg Home Medications Medication Instructions Recorded Confirmed Last Taken Type albuterol sulfate 2.5 mg/3 mL 2.5 mg inhalation TID PRN 04/06/23 04/06/23 Unknown History (0.083 %) solution for nebulization Shortness Of Breath Or Wheezing albuterol sulfate 90 mcg/actuation 2 inh inhalation Q4H PRN Shortness 04/06/23 04/06/23 Unknown History breath activated powder inhaler Of Breath Or Wheezing aspirin 81 mg chewable tablet 81 mg PO DAILY 04/06/23 04/06/23 Unknown History atorvastatin 40 mg tablet 40 mg PO DAILY 04/06/23 04/06/23 Unknown History cholecalciferol (vitamin D3) 25 25 mcg PO DAILY 04/06/23 04/06/23 Unknown History mcg (1,000 unit) tablet citalopram 40 mg tablet 40 mg PO DAILY 04/06/23 04/06/23 Unknown History clobetasol 0.05 % topical cream 1 appl topical BID PRN Rash 04/06/23 04/06/23 Unknown History diltiazem HCl 360 mg capsule,24 360 mg PO DAILY 04/06/23 04/06/23 Unknown History hr,extended release glipizide 10 mg tablet 10 mg PO BID 04/06/23 04/06/23 Unknown History hydrochlorothiazide 25 mg tablet 25 mg PO DAILY 04/06/23 04/06/23 Unknown History insulin glargine 100 unit/mL 30 unit subcut DAILY 04/06/23 04/06/23 Unknown History subcutaneous solution (Lantus U-100 Insulin) ipratropium bromide 0.02 % 2.5 ml inhalation BID 04/06/23 04/06/23 Unknown History solution for inhalation metformin 1,000 mg tablet 1,000 mg PO BID 04/06/23 04/06/23 Unknown History nystatin-triamcinolone 100,000 1 appl topical BID PRN Rash 04/06/23 04/06/23 Unknown History unit/g-0.1 % topical cream pseudoephedrine HCl 30 mg tablet 30 mg PO DAILY PRN Congestion 04/06/23 04/06/23 Unknown History (Sudafed) trazodone 100 mg tablet 100 mg PO BEDTIME 04/06/23 04/06/23 Unknown History Physical Exam Vital Signs: Vital Signs: Last Vital Signs Temp 97.2 F 04/07/23 15:08 Pulse 57 04/07/23 15:08 Resp 18 04/07/23 11:40 BP 138/63 04/07/23 15:08 Pulse Ox 92 04/07/23 15:08 O2 Del Method Room Air 04/07/23 15:08 O2 Flow Rate -2 04/07/23 11:40 BMI result Body Mass Index 24.3 Const: General: cooperative, comfortable, no acute distress, well developed, alert and awake Nutritional Appearance: average body habitus and well nourished Orientation/consciousness: patient oriented x3 Limitations: no limitations HEENT: Head: Yes normocephalic and Yes atraumatic Neck: Neck: Yes trachea midline, Yes supple and Yes no JVD Resp: Effort & Inspection: normal respiratory effort Auscultation: no rales, no wheezes and diminished lung sounds Cardio: Jugular venous distension: no JVD Palpation: normal PMI Rate: regular rate Rhythm: regular rhythm Heart sounds: S1 normal heart sound present, S2 normal heart sound present, no click, no gallops, no murmurs and no rubs GI: Auscultation: normal bowel sounds Skin: General skin exam: no rashes or lesions noted Neuro: General: patient oriented x3 and no focal motor deficits Extrem: General: Yes no clubbing, cyanosis or edema Objective Labs and Meds 04/07/23 04:14 04/07/23 04:14 Lab results: Laboratory Results - last 24 hr 04/06/23 04/06/23 04/06/23 15:46 17:44 18:23 WBC 10.2 RBC 5.62 H Hgb 16.9 H Hct 48.5 H MCV 86.3 MCH 30.1 MCHC 34.8 RDW 14.5 Plt Count 263 MPV 9.9 Immature Gran % (Auto) 0.2 Neut % (Auto) 58.4 Lymph % (Auto) 30.0 [place] % (Auto) 6.5 Eos % (Auto) 4.1 H Baso % (Auto) 0.8 Lymph # (Auto) 3.1 [place] # (Auto) 0.7 Eos # (Auto) 0.4 Baso # (Auto) 0.1 Abs Immat Gran (auto) 0.02 Absolute Neuts (auto) 6.0 Absolute Nucleated RBC 0.000 Nucleated RBC % (auto) 0.0 ESR 2 PT 11.6 INR 1.0 APTT 32.8 aPTT Heparin Protocol Sodium 136 Potassium 3.7 Chloride 98 Carbon Dioxide 26 Anion Gap 16 BUN 9 Creatinine 0.74 Estim Creat Clear Calc 67.7 Estimated GFR > 60 POC Glucose 82 Random Glucose 69 Estimat Average Glucose 148 Hemoglobin A1c % 6.8 H Calcium 9.5 Total Bilirubin 0.8 AST 27 ALT 22 Alkaline Phosphatase 78 Troponin I High Sens 250.9 H* C-Reactive Protein 0.22 Total Protein 7.2 Albumin 4.4 Triglycerides Cholesterol LDL Cholesterol, Calc HDL Cholesterol Influenza Type A (PCR) Influenza Type B (PCR) RSV RNA Qual (PCR) SARS-CoV-2 RNA (RT-PCR) 04/06/23 04/07/23 04/07/23 20:55 01:37 04:14 WBC 7.6 RBC 5.22 Hgb 15.5 Hct 45.0 MCV 86.2 MCH 29.7 MCHC 34.4 RDW 14.2 Plt Count 217 MPV 10.5 Immature Gran % (Auto) 0.3 Neut % (Auto) 51.5 Lymph % (Auto) 33.7 [place] % (Auto) 7.1 Eos % (Auto) 6.6 H Baso % (Auto) 0.8 Lymph # (Auto) 2.6 [place] # (Auto) 0.5 Eos # (Auto) 0.5 H Baso # (Auto) 0.1 Abs Immat Gran (auto) 0.02 Absolute Neuts (auto) 3.9 Absolute Nucleated RBC 0.000 Nucleated RBC % (auto) 0.0 ESR PT 12.6 INR 1.0 APTT aPTT Heparin Protocol 162.7 H* Sodium 135 Potassium 3.1 L Chloride 100 Carbon Dioxide 23 Anion Gap 15 BUN 9 Creatinine 0.64 Estim Creat Clear Calc 85.8 Estimated GFR > 60 POC Glucose Random Glucose 83 Estimat Average Glucose 148 Hemoglobin A1c % 6.8 H Calcium 8.7 D Total Bilirubin 0.7 AST 24 ALT 21 Alkaline Phosphatase 73 Troponin I High Sens 491.0 H* D 659.1 H* 878.5 H* C-Reactive Protein Total Protein 6.2 L Albumin 3.8 Triglycerides Cholesterol LDL Cholesterol, Calc HDL Cholesterol Influenza Type A (PCR) Influenza Type B (PCR) RSV RNA Qual (PCR) SARS-CoV-2 RNA (RT-PCR) 04/07/23 04/07/23 04/07/23 05:31 05:59 07:05 WBC RBC Hgb Hct MCV MCH MCHC RDW Plt Count MPV Immature Gran % (Auto) Neut % (Auto) Lymph % (Auto) [place] % (Auto) Eos % (Auto) Baso % (Auto) Lymph # (Auto) [place] # (Auto) Eos # (Auto) Baso # (Auto) Abs Immat Gran (auto) Absolute Neuts (auto) Absolute Nucleated RBC Nucleated RBC % (auto) ESR PT INR APTT aPTT Heparin Protocol 160.9 H* 68.8 D Sodium Potassium Chloride Carbon Dioxide Anion Gap BUN Creatinine Estim Creat Clear Calc Estimated GFR POC Glucose Random Glucose Estimat Average Glucose Hemoglobin A1c % Calcium Total Bilirubin AST ALT Alkaline Phosphatase Troponin I High Sens C-Reactive Protein Total Protein Albumin Triglycerides 137 Cholesterol 154 LDL Cholesterol, Calc 83 HDL Cholesterol 44 Influenza Type A (PCR) NEGATIVE Influenza Type B (PCR) NEGATIVE RSV RNA Qual (PCR) NEGATIVE SARS-CoV-2 RNA (RT-PCR) NEGATIVE 04/07/23 04/07/23 04/07/23 07:20 11:38 12:03 WBC RBC Hgb Hct MCV MCH MCHC RDW Plt Count MPV Immature Gran % (Auto) Neut % (Auto) Lymph % (Auto) [place] % (Auto) Eos % (Auto) Baso % (Auto) Lymph # (Auto) [place] # (Auto) Eos # (Auto) Baso # (Auto) Abs Immat Gran (auto) Absolute Neuts (auto) Absolute Nucleated RBC Nucleated RBC % (auto) ESR PT INR APTT aPTT Heparin Protocol 47.8 L D Sodium Potassium Chloride Carbon Dioxide Anion Gap BUN Creatinine Estim Creat Clear Calc Estimated GFR POC Glucose 99 159 H Random Glucose Estimat Average Glucose Hemoglobin A1c % Calcium Total Bilirubin AST ALT Alkaline Phosphatase Troponin I High Sens 673.7 H* C-Reactive Protein Total Protein Albumin Triglycerides Cholesterol LDL Cholesterol, Calc HDL Cholesterol Influenza Type A (PCR) Influenza Type B (PCR) RSV RNA Qual (PCR) SARS-CoV-2 RNA (RT-PCR) EKG shows normal sinus rhythm with left bundle-branch block Imaging Radiologist's impression: Impressions Head CT 04/06/23 19:45 IMPRESSION: No acute intracranial abnormalities. Chest X-Ray 04/06/23 22:05 IMPRESSION: Unremarkable examination. Assessment and Plan (1) NSTEMI (non-ST elevated myocardial infarction): Status: Acute Patient with elevated troponins consistent myocardial injury consistent with NSTEMI although with no clear active symptoms that are suggestive of ischemia with underlying left bundle-branch block which is probably old. Patient a cardiac catheterization within the last year which had shown no significant coronary disease as per her. Will need to obtain the records. Meanwhile rising troponins are unexplained could be related to stress-induced cardiomyopathy and/or hypertension related subendocardial injury although this is unlikely. Will obtain echocardiogram to further assess for any significant regional wall motion abnormality to assess for possibility of stress-induced cardiomyopathy. Continue IV heparin for 48 hours. If she has significant wall motion abnormality will need further workup probably with inpatient stress test and/or other cardiac catheterization. This was discussed with him. Continue aspirin as well as high-intensity statin therapy as well as Cardizem therapy for both blood pressure control as well as heart rate control. Will follow with you Procedures Date of Service Date of Service: 04/07/23
--- NOTE | 2023-04-07 15:38 | PM.EVENT ---
Event Note Date of Service: 04/07/23 Event Note: Chart reviewed patient examined. Agree with H&P and plan as ordered. Await Cardiology input. Troponin has peaked at 800 Time Spent With Patient Time: Total time managing care of this patient today ____ minutes.
--- NOTE | 2023-04-07 15:51 | PC.NURSE ---
Pt arrived to unit from ED on stretcher able to ambulate with steady gait to bed. Oriented to room, call mancini, staff and high fall risk measures. A&OX4 speech slightly slurred although intelligible, face symmetric. c/o ongoing headache for last few weeks medicated with Tylenol as needed. Denies dizziness or vision changes, Pupils PERRLA 2B. LSCTA denies SOB or CP, NSR w BBB and first degree HB on tele. Arrives on oxygen per pt does not wear at home was placed overnight for apneic periods, no longer has cpap at home available. BS+X4 abdomen soft non-tender denies nausea/vomiting tolerating diet. Arrives on heparin drip infusing per order at 8u/kg/hr, adjusted to 10/hr at 1300 for PTT result next due at 1915. No bleeding or bruising noted. Pt refusing bed alarm, camera and safety measures after multiple attempts to educate on needs. Dr Pérez notified of patients refusal. Critial troponin reported to Dr Pérez in am. OOB to chair and sitting on bed frequently. Will continue to monitor and report changes
[2023-04-07 16:20] LABS: Glucose, Whole Blood 180 mg/dL (60-115)
[2023-04-07 19:30] LABS: PTT Heparin Drip 92.3 SEC (53-77.9)
[2023-04-07 20:09] LABS: Glucose, Whole Blood 248 mg/dL (60-115)
[2023-04-07] MEDS: 0.9 % Sodium Chloride Flush 3 ML SYRINGE IVFLUSH (20:23)
[2023-04-07] MEDS: Heparin Sodium,Porcine/1/2NS 25,000 UNIT/250 ML IV.SOLN 6.09 UNIT IVCONT (22:44)
[2023-04-08 02:15] LABS: PTT Heparin Drip 50.8 SEC (53-77.9)
[2023-04-08] MEDS: Heparin Sodium,Porcine 5,000 UNIT/ML VIAL 3000 UNIT IVPUSH (02:27)
[2023-04-08 04:00] VITALS: BP 124/58; PULSE 52; RESP 20; TEMP 36.1; O2SAT 92
[2023-04-08 06:42] LABS: Alanine Aminotransferase 22 U/L (0-31); Albumin Level 3.8 g/dL (3.5-5.0); Alkaline Phosphatase 70 U/L (39-117); Anion Gap 13 (12-20); Aspartate Amino Transferase 23 U/L (5-31); Bilirubin Total 0.5 mg/dL (0.0-1.0); Blood Urea Nitrogen 11 mg/dL (9-16); Carbon Dioxide 28 mmol/L (22-29); Chloride 98 mmol/L (96-108); Creatinine Clr Calc Pharmacy 77.3; Estimated Glomerular Filt Rate > 60; Glucose Fasting 127 mg/dL (60-99); Potassium 3.5 mmol/L (3.3-5.1); Sodium 135 mmol/L (135-145); Total Protein 6.3 g/dL (6.5-8.0)
[2023-04-08 07:13] LABS: PTT Heparin Drip 162.6 SEC (53-77.9)
[2023-04-08 07:33] LABS: Glucose, Whole Blood 135 mg/dL (60-115)
[2023-04-08 07:38] VITALS: BP 138/64; PULSE 58; RESP 16; TEMP 36.4; O2SAT 92
[2023-04-08 07:53] LABS: PTT Heparin Drip 92.7 SEC (53-77.9)
[2023-04-08] MEDS: Escitalopram Oxalate 20 MG TABLET PO (08:51)
[2023-04-08] MEDS: hydroCHLOROthiazide 25 MG TABLET PO (08:51)
[2023-04-08] MEDS: glipiZIDE 10 MG TABLET PO (08:51)
[2023-04-08] MEDS: Cholecalciferol (Vitamin D3) 25 MCG TABLET PO (08:51)
[2023-04-08] MEDS: Atorvastatin Calcium 40 MG TABLET PO (08:51)
[2023-04-08] MEDS: Metoprolol Succinate ER 50 MG TAB.ER.24H PO (08:51)
[2023-04-08] MEDS: Aspirin 81 MG TAB.CHEW PO (08:51)
[2023-04-08] MEDS: 0.9 % Sodium Chloride Flush 3 ML SYRINGE IVFLUSH (08:52)
--- NOTE | 2023-04-08 09:13 | P.DS_ITS ---
DS: Providers Provider Date of Service: 04/08/23 Date of admission: 04/06/23 23:29 Date of discharge: 04/01/23 Primary care physician: None Physician Consults: 04/06/23 23:29 Consult to Cardiology Routine Consulting Provider: [facility] Cardiovascular Services Reason for consultation: Elevated troponin Has provider been notified: Yes DS: Diagnosis Discharge Diagnosis (1) NSTEMI (non-ST elevated myocardial infarction): Status: Acute (2) Essential hypertension: Status: Acute DS: Summary Hospital Course Hospital Course: 73 years old woman with past medical history significant for type 2 diabetes mellitus, COPD, obstructive sleep apnea on CPAP, anxiety and hypertension presents to the emergency department complaining of frontal headache and feeling unwell over the last 2 weeks. Denies any associated nausea, vomiting or photophobia. The headache has been constant and improves with Tylenol. She denied any fevers or chills. She did report diarrhea. She denied chest pain, shortness on breath or cough. She denied any gastrointestinal or genitourinary symptoms. She did not report tobacco smoking, alcohol abuse or illicit drug use. Patient mentioned that she moved from [place] (December 2022, and that she underwent a cardiac catheterization there. He said that she was told that the results were okay and underwent no procedures. I asked her why this procedure was done and she said because her EKG did not look good. In the ED, she was found to have normal vital signs. Blood workup is remarkable for elevated troponin (250.9 --> 491 --> 659.1). ESR is normal. There are no electrolyte imbalances and renal function is normal. Hemoglobin A1c 6.8%. Her EKG showed a left bundle branch block. CXR is negative. Head CT scan showed no acute intracranial abnormalities. According to ED provider case was discussed with cardiology service and treatment with heparin IV infusion was recommended. Hospital course Patient admitted to telemetry. Continued on heparin drip. Troponins peaked at 878.5. She underwent a 2D echo which demonstrated LVEF of 30-35% with regional wall motion abnormality consistent with ischemic cardiomyopathy. Her Cardizem was DC it in favor of metoprolol XL. She remained in sinus rhythm however had 1 nonsustained run of VT (6 beats). At this point in time she is medically acceptable to discharge/transfer to [facility] for urgent cardiac catheterization. She will remain on heparin drip as ordered Time Attestation Discharge coordination time: Greater than 30 minutes Quality: Safe Use of Opioids Does Pt have an Active Cancer Diagnosis on the Problem List?: No Quality: Stroke Does the patient have a stroke diagnosis?: No Physical Exam Vital Signs: Vital Signs: Last Vital Signs Temp 97.6 F 04/08/23 07:38 Pulse 58 04/08/23 07:38 Resp 16 04/08/23 07:38 BP 138/64 04/08/23 07:38 Pulse Ox 92 04/08/23 07:38 O2 Del Method Room Air 04/08/23 07:38 O2 Flow Rate -2 04/07/23 11:40 BMI result Body Mass Index 24.3 Const: Other: Awake alert no acute distress Resp: Other: Scattered coarse rhonchi that clear with cough (smoker); otherwise clear to auscultation no crackles appreciated Cardio: Other: No S4; positive S1-S2; no S3 murmurs rubs or gallops GI: Other: Soft nontender nondistended normoactive bowel sounds Neuro: Other: Cranial nerves 2-12 grossly intact as tested. Motor is 5/5 in all extremities. Sensation is intact. Cognition is appropriate. Gait steady Extrem: Other: No edema bilaterally DS: Data Data Completed and Pending Labs on day of discharge: Laboratory Results - last 24 hr 04/07/23 04/07/23 04/07/23 11:38 12:03 15:53 Hold Purple Top aPTT Heparin Protocol 47.8 L D Sodium Potassium Chloride Carbon Dioxide Anion Gap BUN Creatinine Estim Creat Clear Calc Estimated GFR POC Glucose 159 H 180 H Fasting Glucose Calcium Total Bilirubin AST ALT Alkaline Phosphatase Troponin I High Sens 673.7 H* Total Protein Albumin 04/07/23 04/07/23 04/08/23 19:13 20:02 02:00 Hold Purple Top aPTT Heparin Protocol 92.3 H D 50.8 L D Sodium Potassium Chloride Carbon Dioxide Anion Gap BUN Creatinine Estim Creat Clear Calc Estimated GFR POC Glucose 248 H Fasting Glucose Calcium Total Bilirubin AST ALT Alkaline Phosphatase Troponin I High Sens Total Protein Albumin 04/08/23 04/08/23 04/08/23 05:50 07:26 07:28 Hold Purple Top SEE NOTE aPTT Heparin Protocol 162.6 H* D 92.7 H D Sodium 135 Potassium 3.5 Chloride 98 Carbon Dioxide 28 Anion Gap 13 BUN 11 Creatinine 0.71 Estim Creat Clear Calc 77.3 Estimated GFR > 60 POC Glucose 135 H Fasting Glucose 127 H Calcium 9.0 Total Bilirubin 0.5 AST 23 ALT 22 Alkaline Phosphatase 70 Troponin I High Sens Total Protein 6.3 L Albumin 3.8 Discharge Plan Discharge Anticipated Discharge Date/Time: 04/08/23 09:03 Patient Disposition: Xfer Acute Care Hospital Discharge Diagnosis: NSTEMI Referrals: Physician,None [Primary Care Provider] - 1 Week Discharge Medications: New metoprolol succinate 50 mg Tablet Extended Release 24 Hr 50 mg PO DAILY Qty: 30 3RF Protocol: Hold for SBP/HR < HOLD for SBP < : 90 HOLD for HR < : 60 heparin (porcine) 5,000 unit/mL Solution 6,100 unit IVPUSH PROTOCOL BOLUS PRN (Reason: 80 Unit/Kg - Heparin Protocol) Qty: 10 0RF heparin (porcine) 5,000 unit/mL Solution 3,000 unit IVPUSH PROTOCOL BOLUS PRN (Reason: 40 Unit/Kg - Heparin Protocol) Qty: 10 0RF heparin(porcine) in 0.45% NaCl 25,000 unit/250 mL Parenteral Solution 25,000 unit continuous IV infusion .Q0M Qty: 100 0RF Continued atorvastatin 40 mg Tablet 40 mg PO DAILY Qty: 30 3RF insulin glargine [Lantus U-100 Insulin] 100 unit/mL Solution 30 unit SUBCUT DAILY Qty: 10 3RF albuterol sulfate 2.5 mg /3 mL (0.083 %) Solution For Nebulization 2.5 mg INHALATION TID PRN (Reason: Shortness Of Breath Or Wheezing) Qty: 270 3RF citalopram 40 mg Tablet 40 mg PO DAILY Qty: 30 3RF glipizide 10 mg Tablet 10 mg PO BID Qty: 60 3RF clobetasol 0.05 % Cream 1 appl TOPICAL BID PRN (Reason: Rash) Qty: 60 0RF trazodone 100 mg Tablet 100 mg PO BEDTIME Qty: 30 3RF metformin 1,000 mg Tablet 1,000 mg PO BID Qty: 60 3RF nystatin-triamcinolone 100,000-0.1 unit/g-% Cream 1 appl TOPICAL BID PRN (Reason: Rash) Qty: 60 0RF aspirin 81 mg Tablet,Chewable 81 mg PO DAILY Qty: 30 3RF hydrochlorothiazide 25 mg Tablet 25 mg PO DAILY Qty: 30 3RF ipratropium bromide 0.02 % Solution 2.5 ml INHALATION BID Qty: 270 0RF cholecalciferol (vitamin D3) 25 mcg (1,000 unit) Tablet 25 mcg PO DAILY Qty: 30 3RF albuterol sulfate 90 mcg/actuation Aerosol Powdr Breath Activated 2 inh INHALATION Q4H PRN (Reason: Shortness Of Breath Or Wheezing) Qty: 1 3RF Discontinued diltiazem HCl 360 mg Capsule,Extended Release 24 Hr 360 mg PO DAILY pseudoephedrine HCl [Sudafed] 30 mg Tablet 30 mg PO DAILY PRN (Reason: Congestion) Rx Instructions: DNExceed 4 doses/24h Discharge Orders: Discharge Order (Routine); Ordered 04/08/23 Ordered By: Joni Pérez Diet: Advance to usual diet Activity on Discharge: As tolerated Stand Alone Forms: Patient Portal Discharge page Care Plan Goals: Continue therapies as outlined on transfer sheet Health Concerns: Arrange follow-up with PCP after discharge from [facility]. Dr. Pritchett's office will arrange follow-up for Cardiology here at [facility] Plan of Treatment: As ordered Assessment: See discharge summary
--- NOTE | 2023-04-08 10:02 | PM.PNCARD ---
Subjective Subjective Date of Service: 04/08/23 Principal diagnosis: ACS Interval history: Patient says she feels better. Echocardiogram shows moderate to severe LV systolic dysfunction with regional wall motion abnormality which is surprising. Her troponins were not trended. Last troponin was 650. However she says she has no chest pain or shortness of breath. No heart failure symptoms. Currently on IV heparin drip. Heart rate and blood pressure well controlled. Review of Systems Review of Systems Yes all other systems are reviewed and are negative Physical Exam Vital Signs: Last Vital Signs Temp 97.6 F 04/08/23 07:38 Pulse 58 04/08/23 07:38 Resp 16 04/08/23 07:38 BP 138/64 04/08/23 07:38 Pulse Ox 92 04/08/23 07:38 O2 Del Method Room Air 04/08/23 07:38 O2 Flow Rate -2 04/07/23 11:40 BMI result Body Mass Index 24.3 Const General: cooperative, comfortable, no acute distress, well developed, alert and awake Nutritional Appearance: average body habitus and well nourished Orientation/consciousness: patient oriented x3 Limitations: no limitations HEENT Head: Yes normocephalic and Yes atraumatic Neck Neck: Yes trachea midline, Yes supple and Yes no JVD Resp Effort & Inspection: normal respiratory effort Auscultation: no rales, no wheezes and diminished lung sounds Cardio Jugular venous distension: no JVD Palpation: normal PMI Rate: regular rate Rhythm: regular rhythm Heart sounds: S1 normal heart sound present, S2 normal heart sound present, no click, no gallops, no murmurs and no rubs GI Auscultation: normal bowel sounds Skin General skin exam: no rashes or lesions noted Neuro General: patient oriented x3 and no focal motor deficits Extrem General: Yes no clubbing, cyanosis or edema Objective Labs and Meds 04/07/23 04:14 04/08/23 05:50 Lab results: Laboratory Results - last 24 hr 04/07/23 04/07/23 04/07/23 11:38 12:03 15:53 Hold Purple Top aPTT Heparin Protocol 47.8 L D Sodium Potassium Chloride Carbon Dioxide Anion Gap BUN Creatinine Estim Creat Clear Calc Estimated GFR POC Glucose 159 H 180 H Fasting Glucose Calcium Total Bilirubin AST ALT Alkaline Phosphatase Troponin I High Sens 673.7 H* Total Protein Albumin 04/07/23 04/07/23 04/08/23 19:13 20:02 02:00 Hold Purple Top aPTT Heparin Protocol 92.3 H D 50.8 L D Sodium Potassium Chloride Carbon Dioxide Anion Gap BUN Creatinine Estim Creat Clear Calc Estimated GFR POC Glucose 248 H Fasting Glucose Calcium Total Bilirubin AST ALT Alkaline Phosphatase Troponin I High Sens Total Protein Albumin 04/08/23 04/08/23 04/08/23 05:50 07:26 07:28 Hold Purple Top SEE NOTE aPTT Heparin Protocol 162.6 H* D 92.7 H D Sodium 135 Potassium 3.5 Chloride 98 Carbon Dioxide 28 Anion Gap 13 BUN 11 Creatinine 0.71 Estim Creat Clear Calc 77.3 Estimated GFR > 60 POC Glucose 135 H Fasting Glucose 127 H Calcium 9.0 Total Bilirubin 0.5 AST 23 ALT 22 Alkaline Phosphatase 70 Troponin I High Sens Total Protein 6.3 L Albumin 3.8 Progress Note: A&P Assessment and plan (1) Acute coronary syndrome: Status: Acute Assessment and Plan: Acute coronary syndrome with very atypical symptoms with left bundle-branch block with rising troponins and echocardiogram showing moderate to severe LV systolic dysfunction with regional wall motion abnormality. This is concerning for acute plaque rupture and/or coronary disease although she had a cardiac catheterization [place] which was unremarkable as per her within the last year. We discussed the need for cardiac catheterization again given significant LV systolic dysfunction and rising troponin. We discussed the risks, benefits, alternatives and the need for the procedure. She understands agrees. Continue IV heparin, aspirin, statins. Blood pressure is well optimized. Transfer arrangements being made to [facility]. Will follow with her as outpatient. Thank you for allowing me to partake in the care Time Spent With Patient Time: Total time managing care of this patient today ____ minutes. Progress Note: Quality Stroke Does the patient have a stroke diagnosis?: No Procedures Date of Service Date of Service: 04/08/23
[2023-04-08 11:23] VITALS: BP 126/57; PULSE 55; RESP 16; TEMP 36.4; O2SAT 93
[2023-04-08 11:30] LABS: Glucose, Whole Blood 352 mg/dL (60-115)
[2023-04-08] MEDS: Insulin Lispro 100 UNIT/ML 3 ML VIAL SUBCUT (11:38)
== END 2023-04-08 13:44 | disposition short-term general hospital (02) | DRG 281 ==
LOC: HO.ED 22:27 → HO.EDOVER 23:38 → HO.IMC 04-07 07:25
PROVIDERS: Physician Assistant; Admitting Provider Internal Medicine; Emergency Provider Emergency Medicine Emergency Medical Services; Visit Provider Hospitalist
DX: I21.4 Non-ST elevation (NSTEMI) myocardial infarction (principal); I47.20 Ventricular tachycardia, unspecified; J44.9 Chronic obstructive pulmonary disease, unspecified; E78.5 Hyperlipidemia, unspecified; G47.33 Obstructive sleep apnea (adult) (pediatric); I25.5 Ischemic cardiomyopathy; F32.A Depression, unspecified; R51.9 Headache, unspecified; G47.00 Insomnia, unspecified; F17.210 Nicotine dependence, cigarettes, uncomplicated; T42.0X6A Underdosing of hydantoin derivatives, initial encounter; T38.3X6A Underdosing of insulin and oral hypoglycemic [antidiabetic] drugs, initial encounter; T43.226A Underdosing of selective serotonin reuptake inhibitors, initial encounter; Z20.822 Contact with and (suspected) exposure to COVID-19; Z71.6 Tobacco abuse counseling; Z79.82 Long term (current) use of aspirin; Z79.84 Long term (current) use of oral hypoglycemic drugs; Z79.899 Other long term (current) drug therapy
CPT/HCPCS: 0241U; 36415; 70450; 71045; 80053; 80061; 82947; 83036; 84484; 85025; 85610; 85652; 85730; 86140; 93005; 93306; 94660; 99285; J1644; Q9957

== ENCOUNTER → 2023-04-06 17:16 | Outpatient (BNV) | payer MEDICARE, MEDICAID, SELFPAY | PROVIDERS: Admitting Provider Internal Medicine; Emergency Provider Emergency Medicine Emergency Medical Services; Visit Provider Internal Medicine Cardiovascular Disease | DX: R94.31 Abnormal electrocardiogram [ECG] [EKG] (principal); I44.7 Left bundle-branch block, unspecified | CPT/HCPCS: 93010 ==

== ENCOUNTER 2023-04-06 23:29 | Outpatient (BNV) | payer MEDICARE, SELFPAY | END 2023-04-07 07:00 | PROVIDERS: Admitting Provider Internal Medicine; Emergency Provider Emergency Medicine Emergency Medical Services; Visit Provider Internal Medicine Cardiovascular Disease | DX: I21.4 Non-ST elevation (NSTEMI) myocardial infarction (principal) | CPT/HCPCS: 93306 ==

== ENCOUNTER → 2023-04-06 23:29 | Outpatient (BNV) | payer MEDICARE, SELFPAY | PROVIDERS: Admitting Provider Internal Medicine; Emergency Provider Emergency Medicine Emergency Medical Services; Visit Provider Internal Medicine | DX: I24.9 Acute ischemic heart disease, unspecified (principal); E11.69 Type 2 diabetes mellitus with other specified complication; I10 Essential (primary) hypertension; G47.33 Obstructive sleep apnea (adult) (pediatric); R51.9 Headache, unspecified | CPT/HCPCS: 99223; 99238; 99499 ==

== ENCOUNTER → 2023-04-06 23:29 | Outpatient (BNV) | payer MEDICARE, SELFPAY | PROVIDERS: Admitting Provider Internal Medicine; Emergency Provider Emergency Medicine Emergency Medical Services; Visit Provider Internal Medicine Cardiovascular Disease | DX: I24.9 Acute ischemic heart disease, unspecified (principal) | CPT/HCPCS: 99222; 99233 ==

== ENCOUNTER 2023-05-10 16:53 | Emergency (ER) | payer MEDICARE, MEDICAID, SELFPAY ==
[2023-05-10 17:29] VITALS: BP 150/74; PULSE 66; RESP 18; TEMP 36.4; O2SAT 98; BMI 26.7
--- NOTE | 2023-05-10 17:30 | ED.GENADULT ---
HPI - General Adult General Chief complaint: General Medical Stated complaint: med refill Time Seen by Provider: 05/10/23 17:38 Source: patient Mode of arrival: ambulatory Limitations: no limitations History of Present Illness HPI narrative: Patient is a 73 year old assigned female at with a history of DM and ACS presenting to the emergency department today for a medication refill. Patient states that she is going to run out of her medications today before she can get into a primary care provider. Patient denies any dizziness, lightheadedness, abdominal pain, nausea, vomiting, fever, chills, blurry vision, double vision, loss of vision, chest pain, difficulty breathing, shortness of breath, back pain, night sweats, pain with urination, increased urinary frequency, increased urinary urgency, blood in her urine or stool, syncope or a near syncopal episode, recent trauma or falls, bowel incontinence, bladder incontinence, bowel retention, bladder retention, or any other complaints at this time. Relieving factors: none Exacerbating factors: none Associated symptoms: denies other symptoms Treatments prior to arrival: none Related Data Previous Rx's Medication Instructions Recorded albuterol sulfate 2.5 mg/3 mL 2.5 mg (3 mL) inhalation TID PRN 04/08/23 (0.083 %) solution for nebulization Shortness Of Breath Or Wheezing #270 mL albuterol sulfate 90 mcg/actuation 2 inh inhalation Q4H PRN Shortness 04/08/23 breath activated powder inhaler Of Breath Or Wheezing #1 ea aspirin 81 mg chewable tablet 81 mg PO DAILY #30 tabs 04/08/23 atorvastatin 40 mg tablet 40 mg PO DAILY #30 tabs 04/08/23 cholecalciferol (vitamin D3) 25 25 mcg PO DAILY #30 tabs 04/08/23 mcg (1,000 unit) tablet citalopram 40 mg tablet 40 mg PO DAILY #30 tabs 04/08/23 clobetasol 0.05 % topical cream 1 appl topical BID PRN Rash #60 04/08/23 grams glipizide 10 mg tablet 10 mg PO BID #60 tabs 04/08/23 heparin (porcine) 25,000 unit/250 25,000 unit (250 mL) continuous IV 04/08/23 mL in 0.45 % sodium chloride IV infusion .Q0M #100 mL soln heparin (porcine) 5,000 unit/mL 3,000 unit (0.6 mL) IVPUSH 04/08/23 injection solution PROTOCOL BOLUS PRN 40 Unit/Kg - Heparin Protocol #10 mL heparin (porcine) 5,000 unit/mL 6,100 unit (1.22 mL) IVPUSH 04/08/23 injection solution PROTOCOL BOLUS PRN 80 Unit/Kg - Heparin Protocol #10 mL hydrochlorothiazide 25 mg tablet 25 mg PO DAILY #30 tabs 04/08/23 insulin glargine 100 unit/mL 30 unit (0.3 mL) subcut DAILY #10 04/08/23 subcutaneous solution (Lantus mL U-100 Insulin) ipratropium bromide 0.02 % 2.5 ml inhalation BID #270 mL 04/08/23 solution for inhalation metformin 1,000 mg tablet 1,000 mg PO BID #60 tabs 04/08/23 metoprolol succinate 50 mg 50 mg PO DAILY #30 tabs 04/08/23 tablet,extended release 24 hr nystatin-triamcinolone 100,000 1 appl topical BID PRN Rash #60 04/08/23 unit/g-0.1 % topical cream grams trazodone 100 mg tablet 100 mg PO BEDTIME #30 tabs 04/08/23 citalopram 40 mg tablet 40 mg PO DAILY #90 tabs 05/10/23 diltiazem HCl 360 mg 360 mg PO DAILY #90 caps 05/10/23 capsule,extended release 24 hr glipizide 10 mg tablet 10 mg PO BID #180 tabs 05/10/23 hydrochlorothiazide 25 mg tablet 25 mg PO DAILY #90 tabs 05/10/23 insulin glargine 100 unit/mL (3 35 unit (0.35 mL) subcut QPM #15 mL 05/10/23 mL) subcutaneous pen (Lantus Solostar U-100 Insulin) metformin 1,000 mg tablet 1,000 mg PO BID #180 tabs 05/10/23 Allergies Allergy/AdvReac Type Severity Reaction Status Date / Time oxycodone [From Percocet] Allergy Vomiting Verified 04/06/23 13:41 Review of Systems Constitutional: Constitutional: Reports no additional constitutional complaints, Denies chills, Denies fever(s) and Denies night sweats Eyes: Eyes: Reports no additional eye complaints, Denies blurry vision, Denies change in vision, Denies diplopia, Denies eye discharge, Denies loss of vision and Denies eye pain ENT: Denies dizziness Cardiovascular: Cardiovascular: Reports no additional cardiovascular complaints, Denies chest pain, Denies lightheadedness, Denies Loss of Consciousness and Denies dyspnea Respiratory: Respiratory: Reports no additional respiratory complaints and Denies dyspnea Gastrointestinal: Gastrointestinal: Reports no additional gastrointestinal complaints, Denies abdominal pain, Denies melena, Denies hematochezia, Denies change in bowel habits and Denies change in stool character Genitourinary: Genitourinary: Denies hematuria, Denies urinary frequency, Denies dysuria, Denies urinary incontinence, Denies urinary hesitancy and Denies urinary urgency Musculoskeletal: Musculoskeletal: Reports no additional musculoskeletal complaints, Denies numbness and Denies tingling Neurologic: Denies dizziness, Denies loss of vision, Denies numbness and Denies tingling Psychiatric: Psychiatric: Reports no additional psychiatric complaints Endocrine: Endocrine: Reports no additional endocrine complaints Hematologic/Lymphatic: Hematologic/Lymphatic: Reports no additional hematologic/lymphatic complaints Allergic/Immunologic: Allergic/Immunologic: Reports no additional allergic/immunologic complaints PMFSH Past Medical History Attestation statement: The following information was validated with the patient. Source: old records reviewed and nursing notes reviewed Medical History Obstructive sleep apnea on CPAP COPD (chronic obstructive pulmonary disease) Type 2 diabetes mellitus Depression Hyperlipidemia Essential hypertension Social History Social History Household Members: None Household Members Other:: previously with sister Housing: Apartment Do you presently have visiting nurse or other home services: No Comment: Refusing bed alarm/in room camera Patient Tobacco Use Status: Current someday Tobacco user Tobacco use type: Cigarette Advance Directives: Yes Advance Directives on File: Yes Advance Directives Date on File: 04/09/23 service: No Physical Exam ED Vital Signs: Vital Signs - 24 hr 05/10/23 17:29 Temperature 97.5 F Pulse Rate 66 Respiratory Rate 18 Blood Pressure 150/74 H Pulse Oximetry 98 Oxygen Delivery Method Room Air BMI result Body Mass Index 26.7 Const General: cooperative, no acute distress, alert and awake Nutritional Appearance: well nourished Orientation/consciousness: patient oriented x3 Limitations: no limitations HENMT Head: Yes normal to inspection and Yes atraumatic Ears: hearing grossly normal bilaterally and external ears normal General nose exam: Normal external nose present, no nasal discharge noted and no epistaxis Face and sinus: Yes normal facial exam, No abrasion and No laceration Mouth: Normal oral and palatal mucosa present, no drooling and no muffled voice Eyes General: appearance normal, both eyes and all related structures Periorbital: periorbital findings normal Eyelids: Yes eyelids normal Conjunctivae: conjunctivae normal Pupils: Equal, round and reactive pupils present EOM: EOMs intact bilaterally Neck Neck: Yes normal visual inspection, Yes full ROM and Yes no lymphadenopathy Chest Chest palpation & inspection: normal inspection of the chest Resp Effort & Inspection: normal respiratory effort and able to speak in complete sentences GI Inspection: Yes normal to inspection Neuro General: patient oriented x3 and moves all extremities Cranial nerves: Yes Equal, round and reactive pupils present Cognition (Neuro): normal cognition Motor exam (neuro): 5/5 motor strength present throughout Sensory Exam: Normal double simultaneous stimulation for sensation Coordination: [id number] test normal Extrem General: Yes normal to inspection, Yes full ROM and Yes capillary refill normal Psych Appearance: grossly normal Mental Status: mental status grossly normal Affect: normal affect Attitude: cooperative Thought process: Normal thought process present Thought content: Normal thought content present Insight: Good insight present (Psych) Medical Decision Making Medical Decision Making MDM Narrative: Patient is a 73 year old assigned female at with a history of DM and ACS presenting to the emergency department today for a medication refill. Patient's physical exam was unremarkable. I explained my physical exam findings to the patient. I answered all questions asked by the patient. I reviewed the patient's medication list with the patient and confirmed what medications she needed refills for. None of the medications were controlled substances. I reviewed the instructions of each medication with the patient and provided her enough for 90 days. I stressed the importance of the patient taking her medication as prescribed. I stressed the importance of the patient following up with her primary care provider. I stressed the importance of the patient returning to the emergency department immediately if her symptoms were to worsen or if she were to develop any dizziness, shortness of breath, difficulty breathing, chest pain, blurry vision, loss of vision, nausea, vomiting, abdominal pain, fever, chills, back pain, or any other complaints. Patient verbalized agreement and understanding with this treatment plan and discharge. Differential Diagnosis Differential Diagnoses: The differential diagnosis associated with the presentation includes Medication refill Admission/Observation Consideration of admission/observation: Escalation of care including admission/observation considered Patient would have been admitted to the hospital had her clinical presentation warranted hospital admission. Discharge Plan Discharge Clinical Impression: Medication refill Patient Disposition: Home, Self-Care Instructions: Medicine Refill (ED) Additional Instructions: I have prescribed 90 days (3 months) of your medications. Follow up with a primary care provider. Return to the emergency department immediately if your symptoms worsen or if you develop any dizziness, shortness of breath, difficulty breathing, chest pain, blurry vision, loss of vision, nausea, vomiting, abdominal pain, fever, chills, back pain, or any other complaints. Prescriptions: New citalopram 40 mg tablet 40 mg PO DAILY Qty: 90 0RF diltiazem HCl 360 mg capsule,extended release 24hr 360 mg PO DAILY Qty: 90 0RF glipizide 10 mg tablet 10 mg PO BID Qty: 180 0RF hydrochlorothiazide 25 mg tablet 25 mg PO DAILY Qty: 90 0RF metformin 1,000 mg tablet 1,000 mg PO BID Qty: 180 0RF insulin glargine [Lantus Solostar U-100 Insulin] 100 unit/mL (3 mL) insulin pen 35 unit subcut QPM Qty: 15 3RF Continued metoprolol succinate 50 mg Tablet Extended Release 24 Hr 50 mg PO DAILY Qty: 30 3RF Protocol: Hold for SBP/HR < HOLD for SBP < : 90 HOLD for HR < : 60 atorvastatin 40 mg Tablet 40 mg PO DAILY Qty: 30 3RF insulin glargine [Lantus U-100 Insulin] 100 unit/mL Solution 30 unit SUBCUT DAILY Qty: 10 3RF citalopram 40 mg Tablet 40 mg PO DAILY Qty: 30 3RF glipizide 10 mg Tablet 10 mg PO BID Qty: 60 3RF trazodone 100 mg Tablet 100 mg PO BEDTIME Qty: 30 3RF metformin 1,000 mg Tablet 1,000 mg PO BID Qty: 60 3RF aspirin 81 mg Tablet,Chewable 81 mg PO DAILY Qty: 30 3RF hydrochlorothiazide 25 mg Tablet 25 mg PO DAILY Qty: 30 3RF No Action heparin (porcine) 5,000 unit/mL Solution 6,100 unit IVPUSH PROTOCOL BOLUS PRN (Reason: 80 Unit/Kg - Heparin Protocol) Qty: 10 0RF heparin (porcine) 5,000 unit/mL Solution 3,000 unit IVPUSH PROTOCOL BOLUS PRN (Reason: 40 Unit/Kg - Heparin Protocol) Qty: 10 0RF heparin(porcine) in 0.45% NaCl 25,000 unit/250 mL Parenteral Solution 25,000 unit continuous IV infusion .Q0M Qty: 100 0RF albuterol sulfate 2.5 mg /3 mL (0.083 %) Solution For Nebulization 2.5 mg INHALATION TID PRN (Reason: Shortness Of Breath Or Wheezing) Qty: 270 3RF clobetasol 0.05 % Cream 1 appl TOPICAL BID PRN (Reason: Rash) Qty: 60 0RF nystatin-triamcinolone 100,000-0.1 unit/g-% Cream 1 appl TOPICAL BID PRN (Reason: Rash) Qty: 60 0RF ipratropium bromide 0.02 % Solution 2.5 ml INHALATION BID Qty: 270 0RF cholecalciferol (vitamin D3) 25 mcg (1,000 unit) Tablet 25 mcg PO DAILY Qty: 30 3RF albuterol sulfate 90 mcg/actuation Aerosol Powdr Breath Activated 2 inh INHALATION Q4H PRN (Reason: Shortness Of Breath Or Wheezing) Qty: 1 3RF Referrals: [facility] – [place] Family Medicine [Provider Group] (Call to establish and follow up with a primary care provider. If you already have a primary care provider, please follow up with them.) [facility] – [place] [facility], [place] [Provider Group] (Call to establish and follow up with a primary care provider. If you already have a primary care provider, please follow up with them.) [facility] – [place] [facility] [Provider Group] (Call to establish and follow up with a primary care provider. If you already have a primary care provider, please follow up with them.) Discharge Date/Time: 05/10/23 17:45 Print Language: Polish
--- NOTE | 2023-05-10 17:47 | PC.NURSE ---
PT WAS DISCHARGED FROM TRIAGE
== END 2023-05-10 17:45 | disposition home or self-care (01) ==
LOC: HO.ED 17:52
PROVIDERS: Emergency Provider Emergency Medicine Emergency Medical Services
DX: Z76.0 Encounter for issue of repeat prescription (principal); E11.9 Type 2 diabetes mellitus without complications; I24.9 Acute ischemic heart disease, unspecified; I10 Essential (primary) hypertension; E78.5 Hyperlipidemia, unspecified; J44.9 Chronic obstructive pulmonary disease, unspecified
CPT/HCPCS: 99281; 99282